=== PATIENT | female | born 1995 | race Caucasian/White ===

== ENCOUNTER 2023-02-21 14:37 | Emergency (ER) | payer OTHER, SELFPAY ==
[2023-02-21 14:38] VITALS: BP 127/47; PULSE 87; RESP 18; TEMP 36.6; O2SAT 95; BMI 17.9
--- NOTE | 2023-02-21 14:53 | EXP.UTC ---
Discharge Plan Disposition Patient Disposition: Home, Self-Care Condition: Good Prescriptions Prescriptions: New methylprednisolone 4 mg Tablets,Dose Pack 4 mg PO DIRECTED Qty: 21 0RF Referrals Follow up/Referrals: Provider,Referral, MD [Primary Care Provider] - See instructions Activity Restrictions/Add. Instructions Additional Instructions/Restrictions: Take the medications as directed. Follow up with your regular doctor. GO TO THE ER FOR ANY WORSENING SYMPTOMS Clinical Impressions Clinical Impression: Pityriasis rosea Instructions Patient Instructions: Nichoyrbrent Payan, DI for Pityriasis Rosea Discharge ED Provider: Rachid Cordoba [facility] HPI General Stated complaint: painful spots on stomach Time Seen by Provider: 02/21/23 14:53 History of Present Illness Provider Complaint: She states that she has had spots come up on her skin on her trunk for the past 3 days. She states that lesions do itch mildly. She denies any pain. Related Data Previous Rx's Medication Instructions Recorded methylprednisolone 4 mg tablets in 4 mg PO DIRECTED #21 tabs 02/21/23 a dose pack Allergies Allergy/AdvReac Type Severity Reaction Status Date / Time No Known Allergies Allergy Verified 02/21/23 14:55 [facility] Disclaimer: The information contained in this section may have been updated after the patient was seen, as this information can be updated by other users. Social History Smoking Status: Never smoker alcohol intake: never current occupational status: student Travel in the last 8 weeks: None ROS Obtained: Yes All systems reviewed & no additional complaints except as documented Constitutional Constitutional: Denies chills and Denies fever(s) Eyes Eyes: Denies eye discharge ENT Ears, Nose, Mouth, and Throat: Denies dizziness, Denies otalgia and Denies sore throat Cardiovascular Cardiovascular: Denies chest pain Respiratory Respiratory: Denies shortness of breath, Denies chest congestion, Denies cough, Denies stridor and Denies wheezing Gastrointestinal Gastrointestingal: Denies nausea or vomiting Musculoskeletal Musculoskeletal: Reports system reviewed and no additional complaints, except as documented and Denies arthralgias Integumentary/Breasts Skin/Breast: Reports as per HPI and Reports rash Neurologic Neurologic: Denies dizziness and Denies paresthesias Allergic/Immunologic Allergic/Immunologic: Denies wheezing Physical Exam General General appearance: alert and in no apparent distress Head Head exam: atraumatic, normocephalic and normal inspection Eye Eye exam: Present normal appearance, PERRL and EOMI ENT ENT exam: Present normal exam, normal oropharynx, mucous membranes moist, TM's normal bilaterally and normal external ear exam Neck Neck exam: Present normal inspection, full ROM and trachea midline; Absent meningismus or lymphadenopathy Chest Chest inspection: Present normal inspection and symmetric chest wall rise; Absent tenderness Respiratory Respiratory exam: Present normal lung sounds bilaterally; Absent respiratory distress Cardiovascular Cardiovascular exam: Present regular rate and normal rhythm; Absent JVD Abdominal Exam Abdominal exam: Present soft and normal bowel sounds; Absent distention, tenderness or guarding Extremities Exam Extremities exam: Present normal inspection, full ROM and normal capillary refill; Absent calf tenderness Back Exam Back exam: Present normal inspection; Absent tenderness Neurological Exam Neurological exam: Present alert and oriented X3 Psychiatric Psychiatric exam: Present normal affect and normal mood Skin Skin exam: Present rash Lymphatic Lymphatic Findings: no adenopathy Medical Decision Making Medical Records Medical records reviewed: No I reviewed the patient's medical records. Cristiano Inquiry Pt receiving controlled substance: No
[2023-02-21 15:18] VITALS: BP 127/47; PULSE 87; RESP 18; TEMP 36.6; O2SAT 95
== END 2023-02-21 15:19 | disposition home or self-care (01) ==
PROVIDERS: Emergency Provider Nurse Practitioner Family
DX: L42 Pityriasis rosea (principal)
CPT/HCPCS: 99204; 99212; G0463

== ENCOUNTER 2023-09-17 08:03 | Emergency (ER) | payer OTHER, SELFPAY ==
[2023-09-17 08:10] VITALS: BP 117/74; PULSE 76; RESP 18; TEMP 36.6; O2SAT 100; BMI 21.2
--- NOTE | 2023-09-17 08:20 | ED_ITS ---
Discharge Plan Disposition Patient Disposition: Home, Self-Care Condition: Good Prescriptions Prescriptions: New methocarbamol 500 mg tablet 500 mg PO TID PRN (Reason: muscle spasm) Qty: 6 0RF ibuprofen 600 mg tablet 600 mg PO Q6HP PRN (Reason: Moderate Pain) Qty: 20 0RF methylprednisolone [Medrol (Porfirio)] 4 mg tablets,dose pack See Rx Instructions .Route .COMPLEX 6 Days Qty: 21 0RF Rx Instructions: taper pack; No Action buprenorphine-naloxone 8-2 mg tablet, sublingual 2 tab SUBLINGUAL DAILY Referrals Follow up/Referrals: Provider,Referral, MD [Primary Care Provider] - See instructions Activity Restrictions/Add. Instructions Additional Instructions/Restrictions: *Ibuprofen cale 6 hours with meal as needed for pain/inflammation *Not additional anti-inflammatory like motrin, aleve, advil with the above amount of ibuprofen. You can still take Tylenol every 4 hours as needed if you need something else for pain *Ice 20 minutes every 2 hours for the first 48 hours after the initial injury followed by moist heat every 20 minutes 3-4 times a day to affected area *Muscle relaxer every 8 hours as needed for muscle spasms but remember, it WILL cause drowsiness You cannot take it and drive, operate machinery or care for small children. *Keep this area active, no movement leads to more stiffness, However take it easy and avoid heavy lifting pushing or pulling *Follow up with you family doctor if no improvement for further treatment ? Discharge ED Provider: Anitha Butts [facility] General Stated complaint: pulled a muscle in the upper back area Mode of Arrival: Ambulatory Source of Information: Patient Limitations: No Limitations Time Seen by Provider: 09/17/23 08:20 Description of Symptoms (Recalled from Triage Doc. by RN): Pt's symptoms are lower back kumar. She stated that it started thursday and was getting better. She then picked her dog up and it got worse. HEENT Symptoms (Recalled from RN notes): No Resp Symptoms (Recalled from RN notes): No Skin Symptoms (Recalled from RN notes): No MS Symptoms (Recalled from RN notes): Yes Functional Status (Recalled from RN notes): n/a History of Present Illness Provider Complaint: Patient states that over the weekend she felt like she pulled a muscle in her lower back States that it was getting better then she bent over to pickle cutter her dog and felt it pull again States this morning it was still bothering her and worse when she moves certain ways Denies falling denies loss of control of bowel or bladder Related Data Home Medications Medication Instructions Recorded Confirmed buprenorphine 8 mg-naloxone 2 mg 2 tab sublingual DAILY addicition 09/17/23 09/17/23 sublingual tablet Previous Rx's Medication Instructions Recorded ibuprofen 600 mg tablet 600 mg PO Q6HP PRN Moderate Pain 09/17/23 #20 tabs methocarbamol 500 mg tablet 500 mg PO TID PRN muscle spasm #6 09/17/23 tabs methylprednisolone 4 mg tablets in See Rx Instructions .Route 09/17/23 a dose pack (Medrol (Porfirio)) .COMPLEX 6 days #21 tabs Allergies Allergy/AdvReac Type Severity Reaction Status Date / Time No Known Allergies Allergy Verified 09/17/23 08:21 Worker's Comp Is this a Worker's Comp case?: No [facility] Disclaimer: The information contained in this section may have been updated after the patient was seen, as this information can be updated by other users. Social History (Updated 02/22/23 @ 17:02 by Rachid Cordoba APRN) Smoking Status: Never smoker alcohol intake: never current occupational status: student Travel in the last 8 weeks: None ROS Obtained: Yes All systems reviewed & no additional complaints except as documented and Yes Systems reviewed as appropriate & no additional complaints except as documented Constitutional Constitutional: Reports system reviewed and no additional complaints, except as documented and Reports as per HPI Cardiovascular Cardiovascular: Reports system reviewed and no additional complaints, except as documented and Reports as per HPI Respiratory Respiratory: Reports system reviewed and no additional complaints, except as documented and Reports as per HPI Gastrointestinal Gastrointestingal: Reports system reviewed and no additional complaints, except as documented and as per HPI Genitourinary Female Genitourinary: Reports system reviewed and no additional complaints, except as documented, Reports as per HPI, Denies dysuria, Denies urinary frequency and Denies urinary urgency Musculoskeletal Musculoskeletal: Reports system reviewed and no additional complaints, except as documented, Reports as per HPI and Reports back pain (muscle spasms, discomfort after feeling something pull in her lower back) Neurologic Neurologic: Reports system reviewed and no additional complaints, except as documented and Reports as per HPI Physical Exam General General appearance: alert and in no apparent distress ENT ENT exam: Present mucous membranes moist Respiratory Respiratory exam: Present normal lung sounds bilaterally; Absent respiratory distress or wheezes Cardiovascular Cardiovascular exam: Present regular rate, normal rhythm and normal heart sounds Abdominal Exam Abdominal exam: Present soft and normal bowel sounds; Absent distention or tenderness Back Exam Back exam: Present tenderness and muscle spasm; Absent sciatic notch tenderness (R) or sciatic notch tenderness (L) Back 1 view image: 1. reports achy like pain that is worse with certain movements and feels like it spasms up Denies loss of control of bowel or bladder and denies falling Neurological Exam Neurological exam: Present alert, oriented X3 and normal gait Medical Decision Making Cristiano Inquiry Pt receiving controlled substance: No Cristiano was queried for this patient: No Vital Signs: 09/17/23 08:10 Temperature 97.8 F Temperature Source Oral Pulse Rate [Right Radial] 76 Respiratory Rate 18 Blood Pressure [Right Arm] 117/74 Blood Pressure Mean [Right Arm] 88 Blood Pressure Source [Right Arm] Automatic Cuff Blood Pressure Position [Right Arm] Sitting 02 Sat by Pulse Oximetry 100 Oxygen Delivery Method Room Air Lab Data Lab results reviewed: Yes I reviewed the patient's lab results. Medical Decision Narrative: Medications discussed with pharmacy
[2023-09-17 08:35] LABS: UTC Pregnancy Test, Urine Negative (Negative)
[2023-09-17 08:39] VITALS: BP 117/74; PULSE 76; RESP 19; TEMP 36.6; O2SAT 100
== END 2023-09-17 08:39 | disposition home or self-care (01) ==
PROVIDERS: Emergency Provider Nurse Practitioner
DX: S29.012A Strain of muscle and tendon of back wall of thorax, initial encounter (principal); S39.012A Strain of muscle, fascia and tendon of lower back, initial encounter; X50.1XXA Overexertion from prolonged static or awkward postures, initial encounter
CPT/HCPCS: 81025; 99212; 99214; G0463

== ENCOUNTER 2024-11-04 08:31 | Outpatient (CLI) | payer OTHER, SELFPAY ==
[2024-11-05 08:45] LABS: Progesterone 17.9 ng/mL (.)
== END 2024-11-04 23:59 | disposition home or self-care (01) ==
LOC: LAB 08:32
PROVIDERS: PCP Physician Assistant; Visit Provider Obstetrics & Gynecology
DX: Z32.01 Encounter for pregnancy test, result positive (principal)
CPT/HCPCS: 36415; 84144; 84702

== ENCOUNTER 2024-12-01 09:12 | Outpatient (CLI) | payer SELFPAY ==
[2024-12-01 09:45] LABS: Basophils % 0.4 % (0.1-2.0); Eosinophils # 0.2 Kmm3 (0.0-0.4); Eosinophils % 1.4 % (0.1-12.0); Hematocrit 34.4 % (37.0-47.0); Hemoglobin 11.4 g/dL (12.2-16.2); Lymphocytes # 2.4 K/mm3 (0.7-4.5); Lymphocytes % 22.5 % (10-50); Mean Corpuscular HGB Conc 33.1 g/dL (31.8-35.4); Mean Corpuscular Hemoglobin 28.2 pg (27.0-31.2); Mean Corpuscular Volume 85.1 fl (81-99); Mean Platelet Volume 10.6 fl (7.4-10.4); Monocytes # 0.7 K/mm3 (0.1-1.0); Monocytes % 6.7 % (1.7-9.3); Neutrophils # 7.2 K/mm3 (1.8-7.8); Neutrophils % 68.5 % (37.0-80.0); Nucleated Red Blood Cells # 0 10^3/uL; Nucleated Red Blood Cells % 0 %; Platelet Count 250 K/mm3 (142-424); Red Blood Count 4.04 M/mm3 (4.20-5.40); Red Cell Distribution Width 12.7 % (11.5-17.5); Red Cell Distribution Width-SD 39.4 fL; White Blood Count 10.5 K/mm3 (4.8-10.8)
[2024-12-01 10:58] LABS: Hepatitis C Ab Qual. W/ RFX NEGATIVE (Negative)
[2024-12-01 11:08] LABS: HIV Combo NEGATIVE (Negative)
[2024-12-02 05:09] LABS: Hepatitis B Surface Antigen Negative (Negative)
[2024-12-02 08:13] LABS: Rubella Antibodies, IgG <0.90 index (Immune >0.99)
[2024-12-02 15:39] LABS: RPR W/RFX Titers Nonreactive (Nonreactive)
== END 2024-12-01 23:59 | disposition home or self-care (01) ==
LOC: LAB 09:13
PROVIDERS: PCP Physician Assistant; Visit Provider Obstetrics & Gynecology
DX: O99.321 Drug use complicating pregnancy, first trimester (principal); F11.10 Opioid abuse, uncomplicated
CPT/HCPCS: 36415; 85025; 86592; 86762; 86803; 86850; 87340; 87389

== ENCOUNTER 2025-01-19 10:01 | Emergency (ER) | payer OTHER, SELFPAY ==
[2025-01-19 10:08] VITALS: BP 131/72; PULSE 86; RESP 15; TEMP 36.8; O2SAT 98; BMI 20.5
[2025-01-19] MEDS: LIDOCAINE 2% 20ML VIAL 10 ML IJ (10:32)
--- OUTSIDE RECORDS SUMMARY | 2025-01-19 10:34 | XMS_ITS | Data Portability ---
Author Organization [facility] Kory Baez [employer], [address](CLOSED) Address [address] [place] [address] Assessment No assessment recorded. Plan of Treatment Reminders Order Date Submit Date Provider Last Modified By Organization Details Last Modified Time Details Appointments None recorded. Lab test, urine 2020 021 [email or web address] In-House Results, For Internal Use Only, Do Not Delete/merge, [id number] 12:59:11 Referral None recorded. Procedures None recorded. Surgeries None recorded. Imaging US, transvagina l 2020 021 [email or web address] Not available 16:23:08 US, obstetric, transvagina l 2020 021 [email or web address] Not available 16:48:38 Medication Orders Loestrin Fe 08/29 (28-Day) 1 mg-20 mcg (21)/75 mg (7) tablet 2020 021 [email or web address] [facility], [address], [place], [address], 08:07:32 Percocet 7.5 mg-325 mg tablet 2020 021 [email or web address] [facility], [address], [place], [address], 1 08:07:39 ondansetron 8 mg disintegrat ing tablet 2020 021 [facility], [address] [place], [address], 1 09:38:56 Lexapro 10 mg tablet 2020 021 [facility], [address] [place], [address], 09:38:56 trazodone 50 mg tablet 2020 021 [facility], [address] [place], [address], 2 09:11:56 Xanax 0.5 mg tablet 2020 021 [facility], [address] [place], [address], 12:59:14 Patient Targets Encounter Date Encounter Id Patient Goals Patient Target Last Modified By Organization Details Last Modified Time 02/14/2021 [id number] RA operative laparoscopy, excision of pelvic mass/cyst, chromotubation gramie Not available 02/14/2021 09:38:19 Patient Instructions Encounter Date Encounter Id Patient Instructions Last Modified By Organization Details Last Modified Time 11/15/2020 [id number] She is status po st methotrexate for ectopic . She has done well after the injection. Her day 4 and day 7 quantitative hCGs were evaluated and she has greater than a 15% drop. Her pain is significantly less and she has no major bleeding issues. She has struggled with severe anxiety however. I gave her a prescription for xanax to use as needed for her severe panic attacks. I discussed the addictive potential of benzodiazepines and instructed her to only use on rare occasion where conservative measures such as meditation and coping mechanisms aren't helping. She states understanding and agrees not to get any benzodiazepine prescriptions from other providers within 90 days. I have also explained that driving or operating heavy machinery is contraindicated with this type of medication. she is to follow up with me in a week or so for a follow-up ultrasound. At this point we need to follow her urine tests weekly until negative which she can do at home. Contraception discussed today as well. mago Not available 11/19/2020 10:14:50 11/28/2020 [id number] Her HCG is negat james today. She still has this right sided relatively solid adnexal mass that I suspect is just a large blood clot. I will bring her back in a couple of months for re-evaluation of this. If still present consider laparoscopy. She is to notify me of any pain or bleeding problems. She is to start OCPs today. Precautions and warnings given. I have given her strict ovarian torsion precautions. Complexity: Moderate, she has 1 or more chronic problems with exacerbation or progression. Risk: Moderate, as we discussed potential surgery for the problem. mago Not available 11/28/2020 19:01:20 01/23/2021 [id number] f/u pre op jose eduardo Not available 01/08 16:21:39 Today we took ti me to discuss the above diagnosis. We discussed her treatment options. We discussed the risk, benefits, possible complications, and the short and tank officer consequences of treatment. She was sent to the veterinary surgery technician for consultation and coordination of care. jose eduardo Not available 01/23/2021 16:21:45 02/14/2021 [id number] acute pain after surgery: care instructions jose eduardo Not available 02/14/2021 09:38:53 No Aspirin betwe en now and surgery, Nothing to eat or drink at least 8 hour prior to surgery. Call between now and surgery should you experience any new illness. jose eduardo Not available 02/14/2021 09:37:52 Today we discuss ed the above procedure(s). She arrived at the decision to proceed through shared decision making after discussion of the risk, benefits, potential complications and consequences of the above procedure(s). We covered the potential and relative incidence for blood loss, blood clots, infection, damage to surrounding organs, and much less likely residential disability or . After detailed discussion and answering all questions to her satisfaction with regard to the above procedure(s) she wishes to proceed. Written consents were reviewed, and signed. Her pre and post operative instructions were reviewd in detail today. jose eduardo Not available 02/14/2021 09:37:58 03/01/2021 [id number] You have complet ed your post operative observation period. You should resume your normal activities. If you feel pain or have bleeding, you should restrict your activity and call the office for an appointment. If you have any problems do not hesitate to call. f/u 3 months for f/u and pap jose eduardo Not available 03/01/2021 11:50:13 Reason for Referral None Reported. Results Created Date Observation Date Name Description Value Unit Range Abnormal Flag Note LastModifiedBy Organization Detail LastModifiedTime 11/16/19 21 11/15/2020 pregn callie test, urine Unknown Analyte positi ve Not Available In-House Results For Internal Use Only, Do Not Delete/merge, [id number] 11/15/2020 12:48:57 02/22/20 21 02/21/2021 PREGN CALLIE URINE - POCT urine - poct NEGATI VE negati ve Test Perfo med at: [address] T Not Available [facility] [address] [place] [address], [address], 02/21/2021 13:01:17 02/22/20 21 02/21/2021 PREGN CALLIE URINE - POCT performing lab: POC - [facility] [address] [facility] [address] Not Available [facility] [address] [place], [address], 02/21/2021 13:01:17 02/22/20 21 02/21/2021 CBC W/AUT O DIFFE RENTI AL WBC count bld 9.2 K/mm3 4.8-10 .8 Not Available [facility] [address] [place], [address], 02/21/2021 14:20:18 02/22/20 21 02/21/2021 CBC W/AUT O DIFFE RENTI AL red blood cell 4.11 mil/m m 3.80-5 .50 Not Available [facility] [address] [place], [address], 02/21/2021 14:20:18 02/22/20 21 02/21/2021 CBC W/AUT O DIFFE RENTI AL hemoglobin 10.9 gm/dL 11.7-1 5.5 low Not Available [facility] [address] [place], [address], 02/21/2021 14:20:18 02/22/20 21 02/21/2021 CBC W/AUT O DIFFE RENTI AL hematocrit 33.4 % 33.0-4 5.0 Not Available [facility] [address] [place], [address], 02/21/2021 14:20:18 02/22/20 21 02/21/2021 CBC W/AUT O DIFFE RENTI AL mean cell volume 81 fL 78-100 Not Available [facility] [address] [place], [address], 02/21/2021 14:20:18 02/22/20 21 02/21/2021 CBC W/AUT O DIFFE RENTI AL mean cell HGB 26.5 pg 28.0-3 4.0 low Not Available [facility] [address] [place], [address], 02/21/2021 14:20:18 02/22/20 21 02/21/2021 CBC W/AUT O DIFFE RENTI AL mean cell HGB concentratio n 32.6 g/dL 32.0-3 6.0 Not Available [facility] [address] [place], [address], 02/21/2021 14:20:18 02/22/20 21 02/21/2021 CBC W/AUT O DIFFE RENTI AL red cell distribution width 14.6 % 11.5-1 4.5 high Not Available [facility] [address] [place], [address], 02/21/2021 14:20:18 02/22/20 21 02/21/2021 CBC W/AUT O DIFFE RENTI AL platelet count 215 K/mm3 130-40 0 Not Available [place] [id number] [place], [address], 02/21/2021 14:20:18 02/22/20 21 02/21/2021 CBC W/AUT O DIFFE RENTI AL mean platelet volume 9.7 um3 6.0-9. 5 high Not Available [facility] [address] [place], [address], 02/21/2021 14:20:18 02/22/20 21 02/21/2021 CBC W/AUT O DIFFE RENTI AL neutrophil % 63.3 % 45.0-7 5.0 Not Available [place] [address] [place], [address], 02/21/2021 14:20:18 02/22/20 21 02/21/2021 CBC W/AUT O DIFFE RENTI AL lymphocyte % 29.6 % 20-40 Not Available [place] [address] [place], [address], 02/21/2021 14:20:18 02/22/20 21 02/21/2021 CBC W/AUT O DIFFE RENTI AL monocyte % 6.0 % 0-10.5 Not Available [facility] [address] [place], [address], 02/21/2021 14:20:18 02/22/20 21 02/21/2021 CBC W/AUT O DIFFE RENTI AL eosinophil % 0.5 % 0-7 Not Available [place] [address] [place], [address], 02/21/2021 14:20:18 02/22/20 21 02/21/2021 CBC W/AUT O DIFFE RENTI AL basophil % 0.6 % 0-2.0 Not Available [place] [id number] [place], [address], 02/21/2021 14:20:18 02/22/20 21 02/21/2021 CBC W/AUT O DIFFE RENTI AL performing lab: GC - [facility] [address] [facility] [address] Not Available [facility] [address], [place], [address], 02/21/2021 14:20:18 02/26/20 21 02/25/2021 SURGI LAXMI results RUN DATE: 02/25 [facility] PAGE 1 RUN TIME: [address] [place] [address] LIS Speci men Inqui ry ----- ----- ----- ----- ----- ----- ----- ----- ----- ----- ----- ----- ----- ----- ----- ----- ----- ----- -- Name: SANDIE ONTIVEROS Age/S ex: 26/ Locat ion: [place] [id number] Unit# : [id number] Statu s: [facility] [facility] [place] Bed: Re02/21 Disch : Att Dr: Axel Louis DO ----- ----- ----- ----- ----- ----- ----- ----- ----- ----- ----- ----- ----- ----- ----- ----- ----- ----- -- Speci men: SU21: CBQ:3 797 Recei joshua: 02/22-0 820 Statu s: NORA Req#: [id number] Colle cted: 02/21- Sp Type: SURGI LAXMI Subm Doc: Axel Louis DO SPECI MEN: A. FALLO PIAN TUBE, NOS - ENDOM ETRIO MA RIGHT FALLO PIAN TUBE FINAL DIAGN OSIS RIGHT FALLO PIAN TUBE, ROBOT IC- SISTE D OPERA TIVE LAPAR OSCOP Y WITH RESEC TION OF DISTA L PORTI ON OF RIGHT FALLO PIAN TUBE WITH ENDOM CHEO RAMESH AND LYSIS OF ADHES IONS: - INFLA MED ENDOM ETRIO MA WITH HEMOS IDERI N DEPOS ITION AND THROM BUS INVOL VING THE DISTA L FALLO PIAN TUBE SEGME NT. - NEGAT JAMES FOR GRANU MAYO AND TUMOR . Dicta christina by: DEVAN GUIDO MD GROSS DESCR IPTIO N Recei joshua in forma luna, label ed with the patie nt's name, date of , and endo metri kaci right fallo pian tube . The speci men consi sts of a 5 x 4 x 2 cm friab le light alfaro to brown tissu e. The speci men is seria lly secti oned and repre senta tive secti ons are submi tted in casse ttes label ed A1-A4 , one piece per casse tte. SALINA/mm /[id number] Techn ical compo nent perfo rmed at [facility] [address] [place] [address] CLINI LAXMI INFOR MATIO N RIGHT LOW QUADR ANT ABDOM INAL SWELL ING/M ASS PATH PROCE DURES :8830 4 RUN DATE: 02/25 [facility] PAGE 2 RUN TIME: [address] [place] [address] LIS Speci men Inqui ry MCCTK T,SANDIE VIOLA SU21: CBQ:3 797 COPIE S TO: NO PRIMA RY OR FAMIL Y PHYSI Axel Garcia DO [address] [place] [address] PROCE DURES : [id number] (02/07) Thai johnson by: Rebekah MARTINEZ MD Date: 02/25 ----- ----- ----- ----- ----- ----- ----- ----- ----- ----- ----- ----- ----- ----- ----- ----- ----- ----- -- END OF REPOR T Not Available [facility] [address], [place], [address], 02/25/2021 20:04:42 11/29/19 21 US, obste tric, trans vagin al No observ ation record ed. [email or web address] Not Available 2020 19:00:51 11/29/19 21 11/28/2020 ultra sound image s RAD [email or web address] [facility] [address], [place], [address], 11/28/2020 19:00:57 01/24/20 21 US, trans vagin al No observ ation record ed. jose eduardo Not Available 2020 09:35:12 01/24/20 21 01/23/2021 ultra sound image s RAD jose eduardo [facility] [address], [place], [address], 01/25/2021 09:35:00 Result Notes None recorded. Procedures Surgical History Date Name Laterality Status Provider Name and Address Organization Details Recorded Time 03/01/20 Suture/Staple Removal Procedure Note ([facility]) completed Juanjo Major [facility] [employer] 03/01/2021 11:04:12 02/22/20 21 LAPAROSCOPY, SURGICAL WITH FULGURATION/EXCIS ION OF LESIONS OF THE OVARY/PELVIC VISCERA/PERITONEA L SURFACE (SURG) completed Ruby Armstrong [facility] [employer] 02/26/2021 16:31:31 08/10/19 18 Date of Last Pap Smear completed Juanjo Major [facility] 02/14/2021 09:24:40 Hand tendon reconstruction completed Ashley Sims [facility] 11/15/2020 12:41:29 Imaging Results None recorded. Procedure Notes None recorded. Medical Equipment None Reported. Allergies No known drug allergies Medications Name Sig Start Date Stop Date Status Note LastModified by Organization Details LastModified Time trazodone 50 mg tablet TAKE 1 TABLET AT BEDTIME FOR 30 DAYS. active Not Available Not Available No t Available prednisone 20 mg tablet 02/14 completed Not Available Not Available Not Available ondansetron 8 mg disintegrat ing tablet DISSOLVE 1 TABLET IN MOUTH EVERY 8 HOURS NEEDED active Not Available Not Available No t Available alprazolam 0.5 mg tablet TAKE 1/2 TABLET EVERY 8 HOURS NEEDED FOR MODERATE TO SEVERE PANIC ATTACK. active Not Available Not Available No t Available hydrocodone 7.5 mg-acetamin ophen 325 mg tablet 02/14 completed Not Available Not Available Not Available metronidazo le 0.75 % topical cream APPLY TO AFFECTED AREA EVERY DAY 11/15 completed Not Available Not Available Not Available oxycodone-a cetaminophe n 7.5 mg-325 mg tablet TAKE 1 TABLET BY MOUTH EVERY 6 HOURS NEEDED FOR PAIN FOR 5 DAYS 07/26 completed Not Available Not Available Not Available escitalopra m 10 mg tablet TAKE 1 TABLET EVERY DAY BY ORAL ROUTE DIRECTED FOR 30 DAYS. active Not Available Not Available No t Available 08/29 (28) 1 mg-20 mcg (21)/75 mg (7) tablet Take 1 tablet every day by oral route as directed for 84 days. 07/26 completed Not Available Not Available Not Available Xanax 11/28 completed Not Available Not Available Not Available 28 mg iron-800 mcg tablet TAKE 1 TABLET BY MOUTH DAILY 11/15 completed Not Available Not Available Not Available Vitals Date Recorded Body weight Body mass index (BMI) Body height Systolic blood pressure Diastolic blood pressure Provider Name and Address Organization Details Last Updated DateTime 11/15/2020 01301.52 g 23.4 kg/m2 180.34 cm 106 mm[Hg] 64 mm[Hg] Ashley Sims [facility] 12:32:02 Date Recorded Body height Body mass index (BMI) Body weight Systolic blood pressure Diastolic blood pressure Provider Name and Address Organization Details Last Updated DateTime 11/28/2020 180.34 cm 23 kg/m2 52988.74 g 110 mm[Hg] 80 mm[Hg] Mya Ordaz ([facility]) [facility] 16:27:34 Date Recorded Body height Body mass index (BMI) Body weight Systolic blood pressure Diastolic blood pressure Provider Name and Address Organization Details Last Updated DateTime 01/23/2021 180.34 cm 22.2 kg/m2 06540.19 g 124 mm[Hg] 72 mm[Hg] Juanjo Major [facility] 16:04:28 Date Recorded Body height Body mass index (BMI) Body weight Systolic blood pressure Diastolic blood pressure Provider Name and Address Organization Details Last Updated DateTime 02/14/2021 180.34 cm 21.6 kg/m2 18633.82 g 98 mm[Hg] 52 mm[Hg] [facility] 09:30:23 Date Recorded Body height Body mass index (BMI) Body weight Systolic blood pressure Diastolic blood pressure Provider Name and Address Organization Details Last Updated DateTime 03/01/2021 180.34 cm 20.9 kg/m2 48262.86 g 112 mm[Hg] 70 mm[Hg] [facility] 11:04:08 Social History Question Answer Notes LastModified by [employer] Details LastModified Time Tobacco Smoking Status Current Every Day Smoker vape only Ashley Freitasper [facility] 11/15/2020 12:40:13 Is Blood Transfusion Acceptable In An Emergency? Yes Information not available 11/15/2020 What Is Your Level Of Caffeine Consumption? Moderate Information not available 11/15/2020 What Type Of Diet Are You Following? REGULAR Information not available 11/15/2020 Education 12 Information no t available 11/15/2020 Illicit Drugs? No Informatio n not available 11/15/2020 History Of Domestic Violence No Information not available 11/15/2020 Marital Status Single Informatio n not available 11/15/2020 Seat Belts Used Routinely Yes Information not available 11/15/2020 How Many Years Have You Smoked Tobacco? 10 Information not available 11/15/2020 Sex: Unknown Functional Status Question Answer Note LastModified by [employer] Details LastModified Time What is your level of alcohol consumption? Occasional Information not available 11/15/2020 Do you or have you ever used e-cigarettes or vape? [email or web address] Information not available 01/23/2021 What is your exercise level? Heavy Information not available 11/15/2020 Mental Status None recorded. Family History Relationship Description Onset Age of this Age Resolved Age Notes LastModified by Organization Details LastModified Time Mother Hypertensive disorder [email or web address] Not available 2020 12:10:04 Mother Myocardial infarction [email or web address] Not available 01/23 14:45:02 Mother Heart disease ecavelli Not available 2020 12:36:54 Father Malignant neoplasm of skin [email or web address] Not available 2020 14:45:03 Father Infectious disease of lung dece ed [facility] Not available 01/23/2021 14:45:03 Maternal Grandmother Myocardial infarction dece ed [facility] Not available 01/23/2021 14:45:03 Maternal Grandfather Malignant neoplasm of lung dece ed ecavelli Not available 11/15/2020 12:38:17 Paternal Grandfather Sepsis deceas ed [email or web address] Not available 01/23/2021 14:45:03 Paternal Grandmother Hypertensive disorder ecavelli Not available 2020 12:38:56 Medical History Condition Response Neurology- Memory Loss/Dementia N Neurology- Stroke/TIA N Dermatology-Acne N Cancer- Genetic Screening N Endocrinology- Vitamin Deficiency N Endocrinology-Other N Hematology-Anemia N Cardiology- Atrial fib/atrial flutter N Nephrology-Renal Disease N Neurology- Seizures/Epilepsy N Cardiology- Heart Attack N Ortho-Fractures N Neurology- Neuropathy N Reviewed with no changes N Endocrinology- Prolactinoma N Urology- Recurrent Urinary Tract Infecti ons N Pulmonary- Seasonal Allergies/Allergic R hinitis N Psych- PMS/PMDD N Pulmonary-Other N Pulmonary- Lung Disease N Endocrinology- Glucose Intolerance/Insul in Resistance N Psych- Anxiety Disorder Y GI- Reflux/Ulcers N Rheumatology-Arthritis N ID-Chicken Pox/Shingles Y Cancer- Skin N GI- Irritable Bowel Syndrome N Cardiology- Heart Disease N ID-HIV N GI- Colon Polyps N Endocrinology- Osteopenia N Endocrinology- Elevated Prolactin N ID-Other N Psych- Eating Disorder N Ortho- Arthritis N Urology- Urinary Incontinence N Hematology-Blood Transfusion N Pulmonary- Asthma N Urology- Hematuria (Blood in Urine) N Pulmonary- Sleep Apnea N Neurology- Dementia N Urology- Interstitial Cystitis N Endocrinology- Hypothyroidism N Eyes-other N Neurology- Multiple Sclerosis N GI- Hemorrhoids N Neurology-Other N ID- Rheumatic Fever N Hematology-Blood Clotting Disorder/Facto r V Leiden N Endocrinology- Osteoporosis N Psych- Depression N Do you have any current or past medical conditions? N Hematology-Other N Dermatology-Other N ID- Tuberculosis/Positive PPD N Ortho-Chronic Back Pain N Dermatology-Eczema/Psoriasis N Rheumatology-Autoimmune Disease N Cancer- Ovary N Cardiology- High Cholesterol N Cardiology- Heart Arrhythmia N Urology- Kidney or Bladder Problems N Psych- Mental Disorder N Hematology-DVT/Pulmonary Embolism N Psych-other N Endocrinology- Hyperthyroidism N Endocrinology- Thyroid Problems N Ortho-other N Other infectious diseases N Cancer- Breast N Psych- ADD N ID- Herpes N GI- Liver Disease/Hepatitis N Weight Management/Obesity N Cancer- Colon N ENT- Hearing Loss N Cancer- Vulvar N Cancer- Vaginal N GI-Other N Neurology- Headaches/Migraines N Hematology-Bleeding Disorder N Endocrinology- Diabetes N Cancer- Cervical N No diseases or conditions N Pulmonary- COPD/Emphysema N GI- Vitamin Deficiency N GI- Crohn's/Ulcerative Colitis N Endocrinology- History of Gestational Di abetes N Psych- Bipolar Disease N ENT- Seasonal Allergies/Allergic Rhiniti s N Cardiology- High Blood Pressure N Cancer- Lung N Cancer- Endometrial/Uterine N Eyes- Glaucoma N Urology- Kidney Disease N Eyes- Vision Loss/Macular Degeneration N ENT-Other N Rheumatology-Other N Cardiac- Aneurysm N Urology- Kidney Infection N Cardiology- Heart Murmur/Mitral Valve Pr olapse N Urology- Stones N ID-MRSA N Cancer-Other N GI- Gallbladder Disease N Gynecological History Statement/Question Response Date of Last Mammogram Date of LMP 02/03/2021 HPV Test Negative Age at Menopause N/A Post Menopausal Hormone Use Never Sexual orientation Heterosexual History of Endometriosis N Date of Last Colonoscopy History of Sexually Transmitted Infectio n Y History of Infertility N Date of last bone density HPV Vaccine Not Completed History of Recurrent Ovarian Cyst N History of PCOS N History of Fibroids N History of Vulvar Dysplasia N Age at Menarche 15 History of Cervical Dysplasia N Sexually active Y Current Control Method: None History of abnormal PAP N Date of Last Pap Smear 08/10/2017 Obstetrics History GPAL:G 1 P 0 0 1 0 Type Value Multiple Births 0 Full Term 0 Induced 0 Spontaneous 0 Premature 0 Living 0 Ectopics 1 Total 1 Past Encounters Encounter ID Performer Location Encounter Start Date Encounter Closed Date Diagnosis/Indication Diagnosis SNOMED-CT Code Diagnosis ICD10 Code Diagnosis Note [id number] Desmond Sousa [place] [address] [place] [address] 1 11/15/2020 11:26:42 11/15/2020 12:58:25 Ectopic 37396220 O00.90 Moderate anxiety 5103580 6 F41.1 with occasional panic attacks [id number] Desmond Sousa [place] [address] [place] [address] 1 11/28/2020 14:58:39 11/28/2020 16:48:38 Ectopic 07181508 O00.90 [id number] Kole Louis [place] [address] [place] [address] 1 01/23/2021 14:44:45 01/23/2021 16:23:07 Intra-abdominal and pelvic swelling, mass and lump 456425439 R19.03 Persistent insomnia 1919 17047 G47.09 [id number] Kole Louis [place] [address] [place] [address] 1 02/14/2021 09:13:27 02/14/2021 09:36:56 Intra-abdominal and pelvic swelling, mass and lump 257521928 R19.03 Mixed anxi ety and depressive disorder 038042011 F41.8 Postoperative pain 27371 9007 G89.18 [id number] Kole Louis [place] [address] [place] [address] 1 03/01/2021 10:25:43 03/01/2021 11:50:47 Procedure on genitourinary system 410275124 Z48.816 Uses oral contraception 9317103 Z30.41 Endometrio sis of pelvis 22732027 N80.3 Health Concerns Section Related Observation LastModified by Organization Detai ls LastModified Time None Recorded Concern Status LastModified by Organization Details LastModified Time None Recorded Advance Directives Directive None Recorded Payers Insurance Date Sequence Insurance Name Policy Number Policy Webster Covered Member ID Webster Member ID Guarantor Name 07/23/2021 1 [facility] (MEDICAID REPLACEMENT - HMO) Maida Pandya [id number] Maida Gordon Notes Date Note Type Note Provider Name and Address Organization Details Recorded Time 11/15/2020 text/html Abnormal Pregnan cy ([facility])Reported bypatient.Patient presents for:follow-up problem *Location:fallopian tube * Duration:2 weeks * Timing:onset: sudden * Severity:moderate * Context:LMP:09/01/19 21; smoking yes Diagnostic Testing:Blood Type: positive *Associated Signs & Symptoms:vaginal bleeding Previous Treatments:methotrex ate Patient presents for follow from ER for Ectopic. Desmond Sousa DO [address] [facility], [address], [place], [place], [address] [place] [address], [facility] [employer] 11/19/2020 10:15:49 11/28/2020 text/html Patient presents today for follow-up with [facility].She has no pain or bleeding symptoms. Desmond Sousa DO [address] [facility], [address], [place], [place], [address] [place] [address], [facility] [employer] 11/28/2020 19:01:36 01/23/2021 text/html Patient presents to the office today for f/u on ectopic . She c/o her moods being up and down. She states she is still having severe anxiety with depression. She also c/o pelvic pain. Kole Louis DO [address], [address], [place], [place], [address] [place] [address], [facility] [employer] 01/23/2021 16:23:07 02/14/2021 text/html Pre-Op ([facility])Reported bypatient.Procedure Date:02/21/2021 Informed Consent Obtained and Alternative Treatments Discussed for:RA Excision of pelvic mass; Chromotubation Risks Discussed:failure of treatment; infection; further surgery; injury to any surrounding organ; chronic pain; deep vein thrombosis / pulmonary embolism Preoperative Instructions:discont inuation of medications; preoperative medications; preoperative hospital appointment / nursing assessment; arrival time at hospital; NPO status; preoperative diet & bowel prep Postoperative Instructions:no heavy lifting; nothing per vagina; no driving while taking narcotic pain medication; postoperative pain medication instructions; ER precautions Blood Transfusion Acceptable:yes Healthcare Power of Senior Business Objects Developer:noNotes:Per sistant anxiety. Patient presents to the office today for pre-op visit. Kole Louis DO [address] [facility], [address], [place], [address], [facility] Rep [facility] 02/21/2021 06:57:35 03/01/2021 text/html Post-Op ([facility])Reported bypatient.Procedure Date:02/21/2021 Surgical Procedure:Robotic assisted operative laparoscopy with resection of distal portion of the right tube with endometrioma, lysis of adhesions extensive taking greater than 50% of the extended operating time. Chromotubation did demonstrate patency of the left tube. Ablation of endometriosis of the medial aspect of the broad ligament on the left and right and along the uterosacral insertion at the uterus. Pathology:surgical findings and pathology reviewed; future implications discussed Postoperative Symptoms:none; pain well-controlled; tolerating PO; ambulating; voiding without difficulty; return to GI function Postoperative Complications:none Patient presents to the office today for 2 week post-op visit with suture removal. Kole Louis DO [address] [facility], [address], [place], [address], [facility] [employer] 03/01/2021 11:50:27 OBGyn Episode No OBEpisode recorded.
[2025-01-19] MEDS: AMOXICILLIN/CLAVULANATE POTASSIUM 875/125MG TABLET 1 EACH PO (10:42)
--- NOTE | 2025-01-19 11:01 | ED_ITS ---
Discharge Plan Disposition Patient Disposition: Home, Self-Care Prescriptions Prescriptions: New amoxicillin-pot clavulanate 875-125 mg tablet 1 tab PO BID 7 Days Qty: 14 0RF No Action ergocalciferol (vitamin D2) 1,250 mcg (50,000 unit) capsule PO Patient Comments: TAKE 1 CAPSULE BY MOUTH ONCE WEEKLY FOR VITAMIN D DEFICIENCY ondansetron 4 mg tablet,disintegrating 4 mg PO Q8H PRN (Reason: nausea and vomiting) Qty: 30 1RF cholecalciferol (vitamin D3) 50 mcg (2,000 unit) tablet PO Patient Comments: TAKE 1 TABLET BY MOUTH EVERY DAY buprenorphine-naloxone [Suboxone] 8-2 mg film 2 film buccal DAILY Qty: 60 0RF Rx Instructions: place 1 film on inside of (each) cheek Vitamin Plus Low Iron 27 mg iron- 1 mg tablet PO sertraline 25 mg tablet 25 mg PO DAILY Qty: 30 1RF Referrals Follow up/Referrals: Sarah Ramos PA [Primary Care Provider, Medical] - See instructions Activity Restrictions/Add. Instructions Additional Instructions/Restrictions: Call your family doctor to establish care for this visit to the emergency department and schedule follow-up within 48 hours to ensure improvement. If you have any worsening of your condition or any other concerning signs or symptoms, return to the emergency department or your primary care doctor for further evaluation. Antibiotic twice daily for 7 days. Call your dentist in order to set up care for extraction. Clinical Impressions Clinical Impression: Abscess, dental Print Language Print Language: Yi Discharge ED Provider: Alirio Espinoza General Adult HPI General Chief complaint: Dental/Oral Stated complaint: swelling in face, 17 wks preg Time Seen by Provider: 01/19/25 10:04 Mode of Arrival: Ambulatory Source of Information: Patient Description of Symptoms (Recalled from ER Triage Doc. by RN): Patient states she was eating something Thursday01/17/25 and thinks she broke her tooth in the left lower part of her mouth and is now having pain and swelling in mouth. Unable to get in to see dentist and OB (Dr. Mae) is out today. Patient is 17 weeks (G2, P0, A1, L0) and no issues so far with . Took tylenol about 0500 this morning. History of Present Illness HPI narrative: Please note that above description of symptoms, in this electronic medical record under categorization of recalled from ER triage doctor by RN are reflective of an initial nursing assessment, however, is not reflective of my full history and physical exam that was personally taken and clarified. Consequentially, this preceding description of symptoms, which may include the patient's categorized chief complaint in the EMR, do not reflect my personal clinical impression, and the ultimate description of history of present illness and patient stated complaints should be deferred to this section of the note. Unless stated otherwise or congruent with this section of the note, additional signs, symptoms, or incongruence should be interpreted as inaccurate with my clinical impression. Related Data Home Medications ?Medication ?Instructions ?Recorded ?Confirmed vitamin with calcium tab PO 11/22/24 01/17/25 no.72-iron 27 mg-folic acid 1 mg tablet ( Vitamins Plus Low Iron) cholecalciferol (vitamin D3) 50 PO 12/09/24 01/17/25 mcg (2,000 unit) tablet ergocalciferol (vitamin D2) 1,250 PO 12/20/24 01/17/25 mcg (50,000 unit) capsule Previous Rx's ?Medication ?Instructions ?Recorded buprenorphine 8 mg-naloxone 2 mg 2 film buccal DAILY # 60 ea 04/15/24 sublingual film (Suboxone) ondansetron 4 mg disintegrating 4 mg PO Q8H PRN nausea and 12/20/24 tablet vomiting #30 tabs sertraline 25 mg tablet 25 mg PO DAILY #30 tabs 12/09 11/01 amoxicillin 875 mg-potassium 1 tab PO BID 7 days #14 t abs 01/19/25 clavulanate 125 mg tablet Allergies Allergy/AdvReac Type Severity Reaction Status Date / Time No Known Allergies Allergy Verified 01/19/25 10:18 [facility] Disclaimer: The information contained in this section may have been updated after the patient was seen, as this information can be updated by other users. 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 Pityriasis rosea Surgical History Hx of unilateral salpingectomy No pertinent past surgical history Family History Family/Other No significant family history Social History Smoking Status: Current every day smoker alcohol intake: never current occupational status: student Travel in the last 8 weeks?: None Have you lived/traveled outside US in past 30 days?: No Contact w/someone who lives/traveled outside US past 30 days?: No Exposure to someone with infectious disease in past 14 days?: No Do you have a fever (greater than 100.4 F or 38 C)?: No Have you tested positive for COVID-19?: No Exposed to someone with COVID-19 in past 14 days?: No Do you have a sore throat?: No Do you have a cough?: No Do you have any weakness?: No Do you have any diarrhea?: No Are you experiencing any unusual bleeding?: No Do you have any muscle aches/pain?: No Do you have any abdominal pain?: No Are you experiencing loss of taste or smell?: No Other Medical History Have you received the Pneumonia Vaccine: No ROS Obtained: Yes All systems reviewed & no additional complaints except as do cumented Physical Exam General General appearance: alert Head Head exam: atraumatic and normocephalic Eye Eye exam: Present normal appearance, PERRL and EOMI ENT ENT exam: Present other (Swelling to the left side of the mandible no tenderness along the mandible itself. No lymphadenopathy. No range of motion of neck difficulties. Intraorally, patient has numerous dental caries and broken teeth, poor dentition. Periapical abscess.) Neck Neck exam: Present normal inspection, full ROM and trachea midline Respiratory Respiratory exam: Absent respiratory distress, wheezes, stridor, accessory muscle use or prolonged expiratory phase Cardiovascular Cardiovascular exam: Present other (Pulses equal symmetric in upper and lower extremities) Abdominal Exam Abdominal exam: Present soft; Absent distention, tenderness or pulsatile mass Extremities Exam Extremities exam: Absent edema Neurological Exam Neurological exam: Present alert, oriented X3 and CN II-XII intact; Absent motor sensory deficit Skin Skin exam: Present warm and dry; Absent diaphoresis or erythema Medical Decision Making Medical Records Medical records reviewed: Yes I reviewed the patient's medical records. Screening: Per USPSTF and CDC recommendations, given the prevalence of disease in our region, it is our hospital?s policy to screen for HIV and viral Hepatitis for all patients aged 18 and over and those with ongoing risk factors. Cristiano Inquiry Pt receiving controlled substance: No Cristiano was queried for this patient: No Vital Signs: 01/19/25 10:08 Temperature 98.2 F Temperature Source Oral Pulse Rate [Right Radial] 86 Respiratory Rate 15 Blood Pressure [Right Arm] 131/72 Blood Pressure Mean [Right Arm] 91 Blood Pressure Source [Right Arm] Automatic Cuff Blood Pressure Position [Right Arm] Sitting 02 Sat by Pulse Oximetry 98 Oxygen Delivery Method Room Air Orders (Tests/Meds): ED MEDICATIONS Discontinued Medications Generic Name Dose Route Start Last Admin Trade Name Freq PRN Reason Stop Dose Admin Amoxicillin/Clavulanate Potassium 1 each 01/19/25 10:40 01/19/25 10:42 Amoxicillin/Clavulanate Potassium 875/125mg Tablet PO 01/19/25 10:41 1 each ONCE ONE Administration Lidocaine HCl 10 ml 01/19/25 10:25 01/19/25 10:32 Lidocaine 2% 20ml Vial IJ 01/19/25 10:26 10 ml ONCE ONE Administration Medical Decision Narrative: 29-year-old female presenting with facial swelling. She is currently . States that a couple days prior to this she had pain in the left side of her face, it went away, yesterday, 01/18, she was chewing on a hard candy, bit down on that side, had significant pain that brought me to my knees, but did not have any obvious broken teeth at the time. States that she has poor dentition, needs to have an extraction, but is new to the area and does not have appropriate follow-up. Today, noticed the swelling is getting worse on the left side of her face, so came in for further evaluation. No difficulty or pain with swallowing, no difficulty or pain with range of motion of neck, no fevers or chills, abdominal, pelvic, or vaginal complaints, or any other concerns. History obtained with patient. On arrival, obvious swelling to the left side of the face. Swelling to the left side of the mandible no tenderness along the mandible itself. No lymphadenopathy. No range of motion of neck difficulties. Intraorally, patient has numerous dental caries and broken teeth, poor dentition. Periapical abscess. No evidence of tonsillitis, exudate, pharyngeal erythema, uvular deviation, palatal swelling, trismus, external neck swelling, submental induration, angioedema, or other abnormal linwood pharyngeal findings. Labs are considered, but not deemed necessary because patient systemically and clinically well. Imaging of the face was also considered, but given clinical periapical abscess, poor dentition, and , radiation burden deemed unnecessary and CT scan of the face was opted out of. Patient was numbed with lidocaine without epinephrine approximately 2 cc in the lateral aspect of the gum. Lanced with 11 blade. Approximately 2 cc of frankly purulent fluid was expressed and suctioned with bedside canister. Patient was given first dose of Augmentin here. Close return precautions were discussed. Because patient at baseline without signs or symptoms of clinical decompensation, deemed appropriate for discharge. I discussed my clinical impression with patient and answered all questions. At this time, the evidence for any other entities in the differential is insufficient to warrant any further testing or ED observation. This was explained as well. Advisory was given that persistent or worsening symptoms require further evaluation. I confirmed the understanding of this discussion. National Sales Associate disclaimer Much of this encounter note is an electronic plastics design engineer spoken language to printed text. Electronic plastics design engineer of the spoken language may permit errors. Although I have reviewed the note, some errors may still exist. Critical Care Critical Care Time Critical Care Time: No
[2025-01-19 11:17] VITALS: BP 126/80; PULSE 82; RESP 18; TEMP 37.1; O2SAT 96
== END 2025-01-19 11:18 | disposition home or self-care (01) ==
PROVIDERS: Emergency Provider Emergency Medicine; PCP Physician Assistant
DX: O26.892 Other specified pregnancy related conditions, second trimester (principal); R22.0 Localized swelling, mass and lump, head; K04.7 Periapical abscess without sinus; Z3A.17 17 weeks gestation of pregnancy
CPT/HCPCS: 99283; J2003

== ENCOUNTER 2025-02-09 13:57 | Outpatient (CLI) | payer OTHER, SELFPAY ==
--- OUTSIDE RECORDS SUMMARY | 2023-04-30 11:43 | XMS_ITS | Continuity of Care Document ---
Author Organization [facility] Address [address] [place] [address] Phone Care Team Providers Care Real Estate Sales Agent Name Role Phone Stoney MSN, SENIOR PLANNER, Karis Unavailable Unavai lable Allergies, Adverse Reactions, [...] Location Reason(s) For Visit Diagnoses Date Provider [facility], [address] [place], [place], [facility], tel:[phone] 72 [facility] [place] No Information 3 Stoney Dyson. [address] [place], [place], [id number] , . tel:[phone] [facility], [address] [place], [place], [facility], tel:[phone] 72 [facility] [place] No Information 3 Isbell Mehnaz. . [facility], [address] [place] [address], [facility], tel:[phone] 72 [facility] [place] [place] follow up on labs (chief complaint) Body mass index [BMI] 19.9 or less, adultAnxietyOpioid dependence, uncomplicated Sep-0 3 Lua Karis. [address] [place], [place], [id number] , . tel:[phone] [facility], [address] [place] [address], [facility], [place] tel:[phone] 72 [facility] [place] LANG (chief complaint) Cannabis dependence, uncomplicatedOpioid dependence, uncomplicated 3 Sukhi Garza. [address] [place], [place], [id number] , [place]. tel:[phone] [facility], [address] [place] [address], [facility], [place] tel:[phone] 72 [facility]-HRSA [place] No Information 3 Sukhi Darby. . [facility], [address] [place] [address], [facility], tel:[phone] 72 [facility] [place] LANG (chief complaint) Opioid dependence, uncomplicatedCannabis dependence, uncomplicatedOpioid dependence with withdrawal 3 Sukhi Garza. [address] [place], [place], [address] , [place]. tel:[phone] [facility], [address] [place] [address], [facility], [place] tel:[phone] 72 [facility] HR[facility] [place] Opioid dependence with withdrawalAnxiety 3 Valyue Joyce. [address] [place], [place], [address] , [place]. tel:[phone] [facility], [address] [place] [address], [facility], [place] tel:[phone] 72 [facility] [place] No Information 3 Vallee Joyce. [address] [place], [place], [address] , [place]. tel:[phone] [facility], [address] [place] [address], [facility], [place] tel:[phone] 72 [facility] [place] [place] MAT physical (chief complaint) Opioid dependence with withdrawalEncounter for screening for depressionEncounter for screening examination for other mental health and behavioral disordersEncounter for screening for diseases of the blood and blood-forming organs and certain disorders involving the immune mechanismAnxiety 3 Stoney Dyson. [address] [place], [place], [address] , [place]. tel:[phone] [facility], [address] [place] [address], [address], tel:[phone] 72 [facility] [place] No Information 3 Isbell Kayla. [address] [place], [place], [id number] , [place]. tel:[phone] Family History Family Member Type Diagnosis Age [...] Registry Payers Payer name Insurance type Covered republican ID Authoriza tiluz marina(s) Hc- Covered Under Anders CI [id number] Hc- Covered Under Anders CI [id number] Social History Type Description Quantity Date Captured [...] Goal Vitamin B12. Due on due Goal TSH. Due on due Goal CBC. Due on due Goal Tobacco Use Cessation Counse ling. Due on due Goal HIV screen due Goal Obtain Height, Weight, and B DE. Due on due Goal TSH. Due on due Goal Tobacco Use Cessation Counse ling. Due on due Goal CBC. Due on due Goal Generalized Anxi ety Disorder - 7 (MANUELA-7). Due on due Goal Influenza vaccine. Due on due Goal Unhealthy drug use screening . Due on due Goal HIV screen. Due on due Goal Vitamin D. Due on due Goal Tobacco Use Screening. Due o n due Goal Depression screening. Due on due Goal Drug Abuse Screening Test (D AST-10). Due on due Goal Obtain Height, Weight, and B DE. Due on due Goal Diabetes screening. Due on due Goal PAP. Due on due Goal Follow up Plan f or abnormal BMI (Less than 18.5, greater than 25). Due on due Goal Vitamin B12. Due on 023 due Goal Hepatitis C Screening. Due o n due Goal CMP. Due on due Goal Drug Abuse Screening Test (D AST-10). Due on due Goal Diabetes screening. Due on due Goal Hepatitis C Screening. Due o n due Goal PAP. Due on due Goal CMP. Due on due Goal Follow up Plan f or abnormal BMI (Less than 18.5, greater than 25). Due on due Goal Obtain Height, Weight, and B DE. Due on due Goal Tobacco Use Cessation Counse ling. Due on due Goal Unhealthy drug use screening . Due on due Goal HIV screen. Due on 23 due Goal Vitamin D. Due on due Goal Tobacco Use Screening. Due o n due Goal Generalized Anxi ety Disorder - 7 (MANUELA-7). Due on due Goal CBC. Due on due Goal Depression screening. Due on due Goal Influenza vaccine. Due on due Goal TSH. Due on due Goal Vitamin B12. Due on 023 due Goal Dietary education for weight gain completed Goal Diabetes screening. Due on due Goal Unhealthy drug use screening . Due on due Goal Tobacco Use Screening. Due o n due Goal Drug Abuse Screening Test (D AST-10). Due on due Goal Generalized Anxi ety Disorder - 7 (MANUELA-7). Due on due Goal Vitamin D. Due on due Goal Depression screening. Due on due Goal TSH. Due on due Goal Vitamin B12. Due on 023 due Goal Influenza vaccine. Due on due Goal Hepatitis C Screening. Due o n due Goal HIV screen. Due on due Goal Follow up Plan f or abnormal BMI (Less than 18.5, greater than 25). Due on due Goal Obtain Height, Weight, and B DE. Due on due Goal Tobacco Use Cessation Counse ling. Due on due Goal CBC. Due on due Goal PAP. Due on due Goal CMP. Due on due Goal Unhealthy drug use screening . Due on due Goal Tobacco Use Cessation Counse ling. Due on due Goal Vitamin B12. Due on 023 due Goal PAP. Due on due Goal TSH. Due on due Goal Drug Abuse Screening Test (D AST-10). Due on due Goal CMP. Due on due Goal Obtain Height, Weight, and B DE. Due on due Goal Influenza vaccine. Due on due Goal Vitamin D. Due [...] greater than 25). Due on due Goal TSH. Due on [...] due Goal Obtain Height, Weight, and B DE. Due on due Goal CBC. Due on due Goal Lipid panel. Due on due Goal Influenza vaccine. Due [...] due Goal Obtain Height, Weight, and B DE. Due on due Goal Diabetes screening. Due on due Goal Tobacco Use Screening. Due o n due Goal TSH. Due on due Goal Tobacco Use Cessation Counse ling. Due on due Goal CMP. Due on due Goal Depression screening. Due on due Goal HIV screen. Due on due Goal Obtain Height, Weight, and B DE. Due on due Goal Influenza vaccine. Due [...] and/or Guardian has verified being in the [facility] and has given verbal consent to [...] chronic. 27 y/o S/W/F who resides in [facility] with paramour of 3 years. She moved from [facility] 3 years ago to [place]. 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 Quit school in 9th grade due to not being interested. She did obtain her GED. She has been in penitentiary 4-5 times and longest time served 1 [...] start our MAT program. Pt moved to [place] recently from [place] with her fiance, whom is from here. [...]
--- NOTE | 2025-02-09 14:00 | US_ITS ---
PROCEDURE: US OB /MATERNAL DETAIL CLINICAL INDICATION: 20 week anatomy COMPARISON: No exams were available for comparison FINDINGS: Transabdominal sonographic images of the pelvis were obtained. From her established due date she is 20 weeks 0 days. Single viable intrauterine gestation. Breech position. Placenta: Posteriorplacenta grade 1. At the edge of the placenta there may be an area that is circumvallate with the edge folded back upon itself. There is an average amount of fluid. The cervix appears satisfactory. Closed and measuring 2.74 cm in length. Complete survey performed and was unremarkable on the submitted images as in PACS. No discrete anomalies identified on survey imaging by technologist. Active fetus. Three-vessel cord with satisfactory umbilical cord insertion. 4- chamber heart noted. Situs, aortic arch, LVOT, RVOT, three-vessel view appear normal. Survey of brain & ventricles Unremarkable. Cerebellum, thalamus, choroid plexus, cisterna magna appear normal. Face and neck survey unremarkable. Profile, nasion, lips and nose appeared normal. Diaphragm and chest views unremarkable. Abdomen: Both kidneys noted and unremarkable. Stomach and bladder noted and satisfactory. Spine: Survey of the spine satisfactory with no anomalies identified nor imaged. Cervical, thoracic, lower spine was not visualized due to position.. Both arms and legs noted. Amniotic Fluid: Adequate. MVP 5.25 cm Measurements: Average ultrasound age 20weeks 4days. Estimated due date by ultrasound age 1106/25/2025. Estimated weight 349g BPD = 20weeks 6days HC = 20weeks 4days AC = 20weeks 5days FL = 20weeks 0 days Growth Percentile= 67 Heart Rate = 152bpm Cerebellum = 20weeks 0 days Humerus = 20weeks 6days HC/AC is 1.16 FL/BPD is 0.65 FL/AC is 0.2 IMPRESSION: 1. Viable fetus in the breech presentation with a posterior placenta grade 1. The placenta may have an area that is circumvallate with the edge folded back upon itself. 2. The fluid is within normal limits with an MVP 5.25 cm. 3. The lower spine was not well visualized due to position and suggest follow-up in 2-3 weeks. 4. The rest of the anatomical scan appears normal. 5. biometry is consistent with the dates. Dictated by: Shemar Rodriguez MD 02/09/2025 16:14 Shemar Rodriguez MD in OV 02/09/2025 16:14
--- OUTSIDE RECORDS SUMMARY | 2025-02-09 14:00 | XMS_ITS | Data Portability ---
Author Organization [facility] [email or web address], [id number](CLOSED) Address [address] [place] [address] Assessment No assessment recorded. Plan of Treatment Reminders Order Date Submit Date Provider Last Modified By Organization Details Last Modified Time Details Appointments None recorded. Lab test, urine 2020 021 [email or web address] In-House Results, For Internal Use Only, Do Not Delete/merge, [id number] 12:59:11 Referral None recorded. Procedures None recorded. Surgeries None recorded. Imaging US, transvagina l 2020 021 [email or web address] Not available 16:23:08 US, obstetric, transvagina l 2020 021 [email or web address] Not available 16:48:38 Medication Orders Loestrin Fe 08/29 (28-Day) 1 mg-20 mcg (21)/75 mg (7) tablet 2020 021 [email or web address] [facility], [address], [place], [address], 1 08:07:32 Percocet 7.5 mg-325 mg tablet 2020 021 [email or web address] [facility], [address], [place], [address], 08:07:39 ondansetron 8 mg disintegrat ing tablet 2020 021 [facility], [address] [place], [address], 1 09:38:56 Lexapro 10 mg tablet 2020 021 [facility], [address] [place], [address], 09:38:56 trazodone 50 mg tablet 2020 021 [facility], [address] [place], [address], 2 09:11:56 Xanax 0.5 mg tablet 2020 021 [facility], [address] [place], [address], 12:59:14 Patient Targets Encounter Date Encounter Id Patient Goals Patient Target Last Modified By Organization Details Last Modified Time 02/14/2021 [id number] RA operative laparoscopy, excision of pelvic mass/cyst, chromotubation gramie Not available 02/14/2021 09:38:19 Patient Instructions Encounter Date Encounter Id Patient Instructions Last Modified By Organization Details Last Modified Time 11/15/2020 [id number] She is status po st methotrexate for [...] well. mago Not available 11/19/2020 10:14:50 11/28/2020 [id number] Her HCG is negat james today. She [...] we discussed potential surgery for the problem. brooklynnrahat Not available 11/28/2020 19:01:20 01/23/2021 [id number] f/u pre op marianalana Not available 01/08 16:21:39 Today we took ti me to discuss the above diagnosis. We discussed her treatment options. We discussed the risk, benefits, possible complications, and the short and fpc consequences of treatment. She was sent to the [facility] for consultation and coordination of care. marianalana Not available 01/23/2021 16:21:45 02/14/2021 [id number] acute pain after surgery: care instructions marianalana Not available 02/14/2021 09:38:53 No Aspirin betwe en now and surgery, Nothing to eat or drink at least 8 hour prior to surgery. Call between now and surgery should you experience any new illness. marianalana Not available 02/14/2021 09:37:52 Today we discuss ed the above procedure(s). She arrived at the decision to proceed through shared decision making after discussion of the risk, benefits, potential complications and consequences of the above procedure(s). 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 After detailed discussion and answering all questions to her satisfaction with regard to the above procedure(s) she wishes to proceed. Written consents were reviewed, and signed. Her pre and post operative instructions were reviewd in detail today. jose eduardo Not available 02/14/2021 09:37:58 03/01/2021 [id number] You have complet ed your post operative [...] For Internal Use Only, Do Not Delete/merge, [id number] 11/15/2020 12:48:57 02/22/20 21 02/21/2021 PREGN CALLIE URINE - POCT urine - poct NEGATI VE negati ve Test Perfo med at: [address] T Not Available [facility] [address] [place], [address], 02/21/2021 13:01:17 02/22/20 21 02/21/2021 PREGN CALLIE URINE - POCT performing lab: POC - [facility] [address] [facility] [address] Not Available [facility] [address] [place], [address], 02/21/2021 13:01:17 02/22/20 21 02/21/2021 CBC W/AUT O DIFFE RENTI AL WBC count bld 9.2 K/mm3 4.8-10 .8 Not Available [facility] [address] [place], [address], 02/21/2021 14:20:18 02/22/20 21 02/21/2021 CBC W/AUT O DIFFE RENTI AL red blood cell 4.11 mil/m m 3.80-5 .50 Not Available [facility] [address] [place], [address], 02/21/2021 14:20:18 02/22/20 21 02/21/2021 CBC W/AUT O DIFFE RENTI AL hemoglobin 10.9 gm/dL 11.7-1 5.5 low Not Available [facility] [address] [place], [address], 02/21/2021 14:20:18 02/22/20 21 02/21/2021 CBC W/AUT O DIFFE RENTI AL hematocrit 33.4 % 33.0-4 5.0 Not Available [facility] [address] [place], [address], 02/21/2021 14:20:18 02/22/20 21 02/21/2021 CBC W/AUT O DIFFE RENTI AL mean cell volume 81 fL 78-100 Not Available [facility] [address] [place], [address], 02/21/2021 14:20:18 02/22/20 21 02/21/2021 CBC W/AUT O DIFFE RENTI AL mean cell HGB 26.5 pg 28.0-3 4.0 low Not Available [facility] [address] [place], [address], 02/21/2021 14:20:18 02/22/20 21 02/21/2021 CBC W/AUT O DIFFE RENTI AL mean cell HGB concentratio n 32.6 g/dL 32.0-3 6.0 Not Available [facility] [address] [place], [address], 02/21/2021 14:20:18 02/22/20 21 02/21/2021 CBC W/AUT O DIFFE RENTI AL red cell distribution width 14.6 % 11.5-1 4.5 high Not Available [facility] [address] [place], [address], 02/21/2021 14:20:18 02/22/20 21 02/21/2021 CBC W/AUT O DIFFE RENTI AL platelet count 215 K/mm3 130-40 0 Not Available [facility] [address] [place], [address], 02/21/2021 14:20:18 02/22/20 21 02/21/2021 CBC W/AUT O DIFFE RENTI AL mean platelet volume 9.7 um3 6.0-9. 5 high Not Available [facility] [address] [place], [address], 02/21/2021 14:20:18 02/22/20 21 02/21/2021 CBC W/AUT O DIFFE RENTI AL neutrophil % 63.3 % 45.0-7 5.0 Not Available [facility] [address] [place], [address], 02/21/2021 14:20:18 02/22/20 21 02/21/2021 CBC W/AUT O DIFFE RENTI AL lymphocyte % 29.6 % 20-40 Not Available [facility] [address] [place], [address], 02/21/2021 14:20:18 02/22/20 21 02/21/2021 CBC W/AUT O DIFFE RENTI AL monocyte % 6.0 % 0-10.5 Not Available [facility] [address] [place], [address], 02/21/2021 14:20:18 02/22/20 21 02/21/2021 CBC W/AUT O DIFFE RENTI AL eosinophil % 0.5 % 0-7 Not Available [place] [address] [place], [address], 02/21/2021 14:20:18 02/22/20 21 02/21/2021 CBC W/AUT O DIFFE RENTI AL basophil % 0.6 % 0-2.0 Not Available [place] [address] [place], [address], 02/21/2021 14:20:18 02/22/20 21 02/21/2021 CBC W/AUT O DIFFE RENTI AL performing lab: GC - [facility] LUCIANACam Damon [address] [facility] [address] Not Available [facility] [address] [facility], [place], [address], 02/21/2021 14:20:18 02/26/20 21 02/25/2021 SURGI LAXMI results RUN DATE: 02/25 [facility] LUCIANACam R PAGE 1 RUN TIME: [address] [place] [address] LIS Speci men Inqui ry ----- ----- ----- ----- ----- ----- ----- ----- ----- ----- ----- ----- ----- ----- ----- ----- ----- ----- -- Name: SANDIE ONTIVEROS Age/S ex: 26/F Locat ion: E.OPS [id number] Unit# : [id number] Statu s: [facility] Room/ Bed: Re02/21 Disch : Att Dr: Axel Louis DO ----- ----- ----- ----- ----- ----- ----- ----- ----- ----- ----- ----- ----- ----- ----- ----- ----- ----- -- Speci men: SU21: CBQ:3 797 Recei joshua: 02/22-0 820 Statu s: NORA Req#: [id number] Colle cted: 02/21- Sp Type: SURGI LAXMI Subm Doc: Axel Louis DO SPECI MEN: A. FALLO PIAN TUBE, NOS - ENDOM ETRIO MA RIGHT FALLO PIAN TUBE FINAL DIAGN OSIS RIGHT FALLO PIAN TUBE, ROBOT IC- SISTE D OPERA TIVE LAPAR OSCOP Y WITH RESEC TION OF DISTA L PORTI ON OF RIGHT FALLO PIAN TUBE WITH ENDOM ETRIO MA AND LYSIS OF ADHES IONS: - INFLA MED ENDOM ETRIO MA WITH HEMOS IDERI N DEPOS ITION AND THROM BUS INVOL VING THE DISTA L FALLO PIAN TUBE SEGME NT. - NEGAT JAMES FOR GRANU MAYO AND TUMOR . Dicta christina by: DEVAN GUIDO MD DESCR IPTIO N Recei joshua in forma [...] one piece per casse tte. SALINA/mm /[id number] Techn ical compo nent perfo rmed at [facility] laxmi Labor atory [address] [place] [address] CLINI LAXMI INFOR MATIO N RIGHT LOW QUADR ANT ABDOM INAL SWELL ING/M ASS PATH PROCE DURES :8830 4 RUN DATE: 02/25 [facility] PAGE 2 RUN TIME: [address] [place] [address] LIS Speci men Inqui ry APRYL T,SANDIE ROD SU21: CBQ:3 797 COPIE S TO: NO PRIMA RY OR FAMIL Y PHYSI Axel Garcia B DO [address] [place] [address] PROCE DURES : [id number] (02/07 [birth year]/30- 1849) Thai johnson by: Rebekah MARTINEZ MD Date: 02/25 ----- ----- ----- ----- ----- ----- ----- ----- ----- ----- ----- ----- ----- ----- ----- ----- ----- ----- -- END OF REPOR T Not Available [facility] [address], [place], [address], 02/25/2021 20:04:42 11/29/19 21 US, obste tric, trans vagin al No observ ation record ed. [email or web address] Not Available 2020 19:00:51 11/29/19 21 11/28/2020 ultra sound image s RAD [email or web address] [facility] [address], [place], [address], 11/28/2020 19:00:57 01/24/20 21 US, trans vagin al No observ ation record ed. jose eduardo Not Available 2020 09:35:12 01/24/20 21 01/23/2021 ultra sound image s RAD jose eduardo [facility] [address], [place], [address], 01/25/2021 09:35:00 Result Notes None recorded. Procedures Surgical History Date Name Laterality Status Provider Name and Address Organization Details Recorded Time 03/01/20 Suture/Staple Removal Procedure Note ([facility]) completed Juanjo Major [facility] [employer] [facility] 03/01/2021 11:04:12 02/22/20 LAPAROSCOPY, SURGICAL WITH FULGURATION/EXCIS ION OF LESIONS OF THE OVARY/PELVIC VISCERA/PERITONEA L SURFACE (SURG) completed Ruby Armstrong [facility] [employer] [facility] 02/26/2021 16:31:31 08/10/19 18 Date of Last Pap Smear completed Juanjo Major [facility] [employer] [facility] [place] 02/14/2021 09:24:40 Hand tendon reconstruction completed Ashley Sims [facility] [employer] [facility] [place] 11/15/2020 12:41:29 Imaging Results None recorded. Procedure [...] Body mass index (BMI) Body height Systolic And Diastolic Provider Name and Address Organization Details Last Updated DateTime 11/15/2020 93430.52 g 23.4 kg/m2 180.34 cm 106/64 mm[Hg] Ashley Sims [facility] [employer] [facility] [place] 11/15/2020 12:32:02 Date Recorded Body height Body mass index (BMI) Body weight Systolic And Diastolic Provider Name and Address Organization Details Last Updated DateTime 11/28/2020 180.34 cm 23 kg/m2 25508.74 g 110/80 mm[Hg] Mya Ordaz (TERMED) [facility] [employer] [facility] 11/28/2020 16:27:34 Date Recorded Body height Body mass index (BMI) Body weight Systolic And Diastolic Provider Name and Address Organization Details Last Updated DateTime 01/23/2021 180.34 cm 22.2 kg/m2 30550.19 g 124/72 mm[Hg] Juanjo Major [facility] 01/23/2021 16:04:28 Date Recorded Body height Body mass index (BMI) Body weight Systolic And Diastolic Provider Name and Address Organization Details Last Updated DateTime 02/14/2021 180.34 cm 21.6 kg/m2 48801.82 g 98/52 mm[Hg] [facility] 02/14/2021 09:30:23 Date Recorded Body height Body mass index (BMI) Body weight Systolic And Diastolic Provider Name and Address Organization Details Last Updated DateTime 03/01/2021 180.34 cm 20.9 kg/m2 37924.86 g 112/70 mm[Hg] [facility] 03/01/2021 11:04:08 Social History Question Answer Notes LastModified by FTB[employer] ion Details LastModified Time Tobacco Smoking Status Current Every Day Smoker vape only Ashley Sims [facility] 11/15/2020 12:40:13 Is Blood Transfusion Acceptable [...] Functional Status Question Answer Note LastModified by [employer] ion Details LastModified Time What is your level of alcohol consumption? Occasional Information not available 11/15/2020 Do you or have you ever used e-cigarettes or vape? Current user of electronic cigarettes [email or web address] Information not available 01/23/2021 What is your exercise level? Heavy Information not available 11/15/2020 Mental Status None recorded. Family History Relationship Description Onset Age of this Age Resolved Age Notes LastModified by Organization Details LastModified Time Mother Hypertensive disorder ecavelli Not available 2020 12:10:04 Mother Myocardial infarction [email or web address] Not available 01/23 14:45:02 Mother Heart disease ecavelli Not available 2020 12:36:54 Father Malignant neoplasm of skin [email or web address] Not available 2020 14:45:03 Father Infectious disease of lung [facility] Not available 01/23/2021 14:45:03 Maternal Grandmother Myocardial infarction [facility] Not available 01/23/2021 14:45:03 Maternal Grandfather Malignant neoplasm of lung [facility]elli Not available 11/15/2020 12:38:17 Paternal Grandfather Sepsis [facility] Not available 01/23/2021 14:45:03 Paternal Grandmother Hypertensive [...] hinitis N Psych- PMS/PMDD N Pulmonary-Other N Endocrinology- Glucose Intolerance/Insul in Resistance N Pulmonary- Lung Disease N Psych- Anxiety Disorder Y GI- Reflux/Ulcers [...] Neurology- Multiple Sclerosis N GI- Hemorrhoids N Hematology-Blood Clotting Disorder/Facto r V Leiden N ID- Rheumatic Fever N Neurology-Other N Endocrinology- Osteoporosis N Psych- Depression N Do you have any current or past medical conditions? N Hematology-Other N Dermatology-Eczema/Psoriasis N Dermatology-Other N ID- Tuberculosis/Positive PPD N Ortho-Chronic Back Pain N Rheumatology-Autoimmune Disease N Cancer- Ovary N [...] Vulvar N Cancer- Vaginal N GI-Other N Hematology-Bleeding Disorder N Neurology- Headaches/Migraines N Endocrinology- Diabetes N Cancer- Cervical N [...] SNOMED-CT Code Diagnosis ICD10 Code Diagnosis Note [id number] Desmond Sousa DO [id number] [place] [address] 1 11/15/2020 11:26:42 11/15/2020 12:58:25 Ectopic 77158324 O00.90 Moderate anxiety 6157159 6 F41.1 with occasional panic attacks [id number] Desmond Sousa DO [id number] [place] [address] 1 11/28/2020 14:58:39 11/28/2020 16:48:38 Ectopic [id number] O00.90 [id number] Kole Louis [address] [place] [address] 1 01/23/2021 14:44:45 01/23/2021 16:23:07 Intra-abdominal and pelvic swelling, mass and lump 720235531 R19.03 Persistent insomnia 1919 95299 G47.09 [id number] Kole Louis [address] [place] [address] 1 02/14/2021 09:13:27 02/14/2021 09:36:56 Intra-abdominal and pelvic swelling, mass and lump 504003689 R19.03 Mixed anxi ety and depressive disorder 416315756 F41.8 Postoperative pain 99026 9007 G89.18 [id number] Kole Louis [address] [address] [place] [address] 1 03/01/2021 10:25:43 03/01/2021 11:50:47 Procedure on genitourinary system 994273210 Z48.816 Uses oral contraception 2182983 Z30.41 Endometrio sis of pelvis 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 N80.3 Health Concerns Section Related Observation LastModified by Organization Detai ls LastModified Time None Recorded Concern Status LastModified by Organization Details LastModified Time None Recorded Advance Directives Directive None Recorded Payers Insurance Date Sequence Insurance Name Policy Number Policy Webster Covered Member ID Webster Member ID Guarantor Name 07/23/2021 1 [facility] (MEDICAID REPLACEMENT - HMO) Maida Pandya [id number] Maida Gordon Notes Date Note Type Note Provider Name and Address Organization Details Recorded Time 11/15/2020 text/html Abnormal Pregnan cy ([facility])Reported bypatient.Patient presents for:follow-up problem *Location:fallopian tube * Duration:2 weeks * Timing:onset: sudden * Severity:moderate * Context:LMP:09/01/19 21; smoking yes Diagnostic Testing:Blood Type: positive *Associated Signs & Symptoms:vaginal bleeding Previous Treatments:methotrex ate Patient presents for follow from ER for Ectopic. Desmond Sousa DO [address], [place], [place], [address] [place] [address], [facility] [employer] 11/19/2020 10:15:49 11/28/2020 text/html Patient presents today for follow-up with TVUS.She has no pain or bleeding symptoms. Desmond Sousa DO [address] [facility], [place], [place], [address] [place] [address], [facility] [employer] 11/28/2020 19:01:36 01/23/2021 text/html Patient presents to the office today for f/u on ectopic . She c/o her moods being up and down. She states she is still having severe anxiety with depression. She also c/o pelvic pain. Kole Louis DO [address] [facility], [address], [place], [place], [address] [place] [address], [facility] [employer] 01/23/2021 16:23:07 02/14/2021 text/html Pre-Op ([facility])Reported bypatient.Procedure Date:02/21/2021 Informed Consent Obtained and Alternative [...] precautions Blood Transfusion Acceptable:yes Healthcare Power of Inventory Associate And Driver:noNotes:Per sistant anxiety. Patient presents to the office today for pre-op visit. Kole Louis DO [address] [facility], [address], [place], [address], [facility] [email or web address] [facility] 02/21/2021 06:57:35 03/01/2021 text/html Post-Op ([facility])Reported bypatient.Procedure Date:02/21/2021 Surgical Procedure:Robotic assisted operative laparoscopy [...] suture removal. Kole Louis DO [address] [facility], [address], [place], [address], [facility] [email or web address] [facility] 03/01/2021 11:50:27 OBGyn Episode No OBEpisode recorded.
== END 2025-02-09 23:59 | disposition home or self-care (01) ==
LOC: RAD 13:58
PROVIDERS: PCP Physician Assistant; Visit Provider Obstetrics & Gynecology
DX: O32.1XX0 Maternal care for breech presentation, not applicable or unspecified (principal); O28.3 Abnormal ultrasonic finding on antenatal screening of mother; O99.332 Smoking (tobacco) complicating pregnancy, second trimester; O99.322 Drug use complicating pregnancy, second trimester; O09.892 Supervision of other high risk pregnancies, second trimester; F17.200 Nicotine dependence, unspecified, uncomplicated; F11.20 Opioid dependence, uncomplicated; Z28.39 Other underimmunization status; Z3A.20 20 weeks gestation of pregnancy
CPT/HCPCS: 76811

== ENCOUNTER 2025-02-27 12:48 | Outpatient (CLI) | payer OTHER, SELFPAY ==
--- OUTSIDE RECORDS SUMMARY | 2025-02-27 12:50 | XMS_ITS | Data Portability ---
Author Organization [facility] Ramamia, [id number](CLOSED) Address [address] [place] [address] Assessment No assessment recorded. Plan of Treatment Reminders Order Date Submit Date Provider Last Modified By Organization Details Last Modified Time Details Appointments None recorded. Lab test, urine 2020 021 [email or web address] In-House Results, For Internal Use Only, Do Not Delete/merge, [id number] 12:59:11 Referral None recorded. Procedures None recorded. Surgeries None recorded. Imaging US, transvagina l 2020 021 [email or web address] Not available 16:23:08 US, obstetric, transvagina l 2020 021 [email or web address] Not available 16:48:38 Medication Orders Loestrin Fe 08/29 (28-Day) 1 mg-20 mcg (21)/75 mg (7) tablet 2020 021 [email or web address] [facility], [address], [place], [address], 1 08:07:32 Percocet 7.5 mg-325 mg tablet 2020 021 [email or web address] [facility], [address], [place], [address], 08:07:39 ondansetron 8 mg disintegrat ing tablet 2020 021 [facility], [address] [place], [address], 1 09:38:56 Lexapro 10 mg tablet 2020 021 [facility], [address] [place], [address], 09:38:56 trazodone 50 mg tablet 2020 021 [facility], [address] [place], [address], 2 09:11:56 Xanax 0.5 mg tablet 2020 021 [facility], [address] [place], [address], 12:59:14 Patient Targets Encounter Date Encounter Id Patient Goals Patient Target Last Modified By Organization Details Last Modified Time 02/14/2021 [id number] RA operative laparoscopy, excision of pelvic mass/cyst, chromotubation gramie Not available 02/14/2021 09:38:19 Patient Instructions Encounter Date Encounter Id Patient Instructions Last Modified By Organization Details Last Modified Time 11/15/2020 [id number] She is status po st methotrexate for [...] well. mago Not available 11/19/2020 10:14:50 11/28/2020 [id number] Her HCG is negat james today. She [...] problem. brooklynnrahat Not available 11/28/2020 19:01:20 01/23/2021 [id number] f/u pre op marianalana Not available 01/08 16:21:39 Today we took ti me to discuss the above diagnosis. We discussed her treatment options. We discussed the risk, benefits, possible complications, and the short and jail consequences of treatment. She was sent to the bailer operators supervisor for consultation and coordination of care. marianalana Not available 01/23/2021 16:21:45 02/14/2021 [id number] acute pain after surgery: care instructions marianalana [...] to surrounding organs, and much less likely intermediate school teacher disability or . After detailed discussion and answering all questions to her satisfaction with regard to the above procedure(s) she wishes to proceed. Written consents were reviewed, and signed. Her pre and post operative instructions were reviewd in detail today. jose eduardo Not available 02/14/2021 09:37:58 03/01/2021 [id number] You have complet ed your post operative [...] For Internal Use Only, Do Not Delete/merge, [id number] 11/15/2020 12:48:57 02/22/20 21 02/21/2021 PREGN CALLIE URINE - POCT urine - poct NEGATI VE negati ve Test Perfo med at: [address] T Not Available [facility] [address] [place], [address], 02/21/2021 13:01:17 02/22/20 21 02/21/2021 PREGN CALLIE URINE - POCT performing lab: [facility] - [facility] [address] [facility] [address] Not Available [facility] [address] [place] [address] [place], [address], 02/21/2021 13:01:17 02/22/20 21 02/21/2021 CBC W/AUT O DIFFE RENTI AL WBC count bld 9.2 K/mm3 4.8-10 .8 Not Available [facility] [address] [place], [address], 02/21/2021 14:20:18 02/22/20 21 02/21/2021 CBC W/AUT O DIFFE RENTI AL red blood cell 4.11 mil/m m 3.80-5 .50 Not Available [facility] [address] [place], [address], 02/21/2021 14:20:18 02/22/20 21 02/21/2021 CBC W/AUT O DIFFE RENTI AL hemoglobin 10.9 gm/dL 11.7-1 5.5 low Not Available [facility] [address] [place], [address], 02/21/2021 14:20:18 02/22/20 21 02/21/2021 CBC W/AUT O DIFFE RENTI AL hematocrit 33.4 % 33.0-4 5.0 Not Available [facility] [address] [place], [address], 02/21/2021 14:20:18 02/22/20 21 02/21/2021 CBC W/AUT O DIFFE RENTI AL mean cell volume 81 fL 78-100 Not Available [facility] [address] [place], [address], 02/21/2021 14:20:18 02/22/20 21 02/21/2021 CBC W/AUT O DIFFE RENTI AL mean cell HGB 26.5 pg 28.0-3 4.0 low Not Available [facility] [address] [place], [address], 02/21/2021 14:20:18 02/22/20 21 02/21/2021 CBC W/AUT O DIFFE RENTI AL mean cell HGB concentratio n 32.6 g/dL 32.0-3 6.0 Not Available [facility] [address] [place], [address], 02/21/2021 14:20:18 02/22/20 21 02/21/2021 CBC W/AUT O DIFFE RENTI AL red cell distribution width 14.6 % 11.5-1 4.5 high Not Available [facility] [address] [place], [address], 02/21/2021 14:20:18 02/22/20 21 02/21/2021 CBC W/AUT O DIFFE RENTI AL platelet count 215 K/mm3 130-40 0 Not Available [facility] [address] [place], [address], 02/21/2021 14:20:18 02/22/20 21 02/21/2021 CBC W/AUT O DIFFE RENTI AL mean platelet volume 9.7 um3 6.0-9. 5 high Not Available [facility] [address] [place], [address], 02/21/2021 14:20:18 02/22/20 21 02/21/2021 CBC W/AUT O DIFFE RENTI AL neutrophil % 63.3 % 45.0-7 5.0 Not Available [facility] [address] [place], [address], 02/21/2021 14:20:18 02/22/20 21 02/21/2021 CBC W/AUT O DIFFE RENTI AL lymphocyte % 29.6 % 20-40 Not Available [facility] [address] [place], [address], 02/21/2021 14:20:18 02/22/20 21 02/21/2021 CBC W/AUT O DIFFE RENTI AL monocyte % 6.0 % 0-10.5 Not Available [facility] [address] [place], [address], 02/21/2021 14:20:18 02/22/20 21 02/21/2021 CBC W/AUT O DIFFE RENTI AL eosinophil % 0.5 % 0-7 Not Available [facility] [address] [place], [address], 02/21/2021 14:20:18 02/22/20 21 02/21/2021 CBC W/AUT O DIFFE RENTI AL basophil % 0.6 % 0-2.0 Not Available [place] [address] [place], [address], 02/21/2021 14:20:18 02/22/20 21 02/21/2021 CBC W/AUT O DIFFE RENTI AL performing lab: GC - [facility] LUCIANACam Damon [address] [facility] [address] Not Available [facility] [address] [facility], [place], [address], 02/21/2021 14:20:18 02/26/20 21 02/25/2021 SURGI LAXMI results RUN DATE: 02/25 [facility] LUCIANA[facility] R PAGE 1 RUN TIME: [address] [place] [address] LIS Speci men Inqui ry ----- ----- ----- ----- ----- ----- ----- ----- ----- ----- ----- ----- ----- ----- ----- ----- ----- ----- -- Name: SANDIE ONTIVEROS Age/S ex: 26/F Locat ion: E.OPS [id number] Unit# : [id number] Statu s: [facility] [facility] Bed: Re02/21 Disch : Att Dr: Axel Louis DO ----- ----- ----- ----- ----- ----- ----- ----- ----- ----- ----- ----- ----- ----- ----- ----- ----- ----- -- Speci men: SU21: CBQ:3 797 Recei joshua: 02/22-0 820 Statu s: NORA Req#: [id number] Colle cted: 02/21- Sp Type: SURGI [...] one piece per casse tte. SALINA/mm /[id number] Techn ical compo nent perfo rmed at [facility] laxmi Labor atory [address] [place] [address] CLINI LAXMI INFOR MATIO N RIGHT LOW QUADR ANT ABDOM INAL SWELL ING/M ASS PATH PROCE DURES :8830 4 RUN DATE: 02/25 [facility] PAGE 2 RUN TIME: [address] [place] [address] LIS Speci men Inqui ry APRYL T,SANDIE ROD SU21: CBQ:3 797 COPIE S TO: NO PRIMA RY OR FAMIL Y PHYSI Axel Garcia B DO [address] [place] [address] PROCE DURES : [id number] (02/07 04/30- 1850) Thai johnson by: Rebekah MARTINEZ MD Date: 02/25 ----- ----- ----- ----- ----- ----- ----- ----- ----- ----- ----- ----- ----- ----- ----- ----- ----- ----- -- END OF REPOR T Not Available [facility] [address], [place], [address], 02/25/2021 20:04:42 11/29/19 21 US, obste tric, trans vagin al No observ ation record ed. [email or web address] Not Available 2020 19:00:51 11/29/19 21 11/28/2020 ultra sound image s RAD [email or web address] [facility] [address], [place], [address], 11/28/2020 19:00:57 01/24/20 21 US, trans vagin al No observ ation record ed. jose eduardo Not Available 2020 09:35:12 01/24/20 21 01/23/2021 ultra sound image s RAD jose eduardo [facility] [address], [place], [address], 01/25/2021 09:35:00 Result Notes None recorded. Procedures Surgical History Date Name Laterality Status Provider Name and Address Organization Details Recorded Time 03/01/20 Suture/Staple Removal Procedure Note ([facility]) completed Juanjo Major [facility] 03/01/2021 11:04:12 02/22/20 LAPAROSCOPY, SURGICAL WITH FULGURATION/EXCIS ION OF LESIONS OF THE OVARY/PELVIC VISCERA/PERITONEA L SURFACE (SURG) completed Ruby Armstrong [facility] 02/26/2021 16:31:31 08/10/19 18 Date of Last Pap Smear completed Juanjo Major [facility] 02/14/2021 09:24:40 Hand tendon reconstruction completed Ashley Sims [facility] 11/15/2020 12:41:29 Imaging Results None recorded. Procedure [...] Address Organization Details Last Updated DateTime 11/15/2020 08159.52 g 23.4 kg/m2 180.34 cm 106/64 mm[Hg] Ashley Sims [facility] 11/15/2020 12:32:02 Date Recorded Body height Body mass index (BMI) Body weight Systolic And Diastolic Provider Name and Address Organization Details Last Updated DateTime 11/28/2020 180.34 cm 23 kg/m2 11711.74 g 110/80 mm[Hg] Mya Ordaz (TERMED) [facility] 11/28/2020 16:27:34 Date Recorded Body height Body mass index (BMI) Body weight Systolic And Diastolic Provider Name and Address Organization Details Last Updated DateTime 01/23/2021 180.34 cm 22.2 kg/m2 49101.19 g 124/72 mm[Hg] Juanjo Major [facility] 01/23/2021 16:04:28 Date Recorded Body height Body mass index (BMI) Body weight Systolic And Diastolic Provider Name and Address Organization Details Last Updated DateTime 02/14/2021 180.34 cm 21.6 kg/m2 76084.82 g 98/52 mm[Hg] [facility] 02/14/2021 09:30:23 Date Recorded Body height Body mass index (BMI) Body weight Systolic And Diastolic Provider Name and Address Organization Details Last Updated DateTime 03/01/2021 180.34 cm 20.9 kg/m2 69249.86 g 112/70 mm[Hg] [facility] 03/01/2021 11:04:08 Social History Question Answer Notes LastModified by LetGive ion Details LastModified Time Tobacco Smoking Status Current Every Day Smoker vape only Ashley Sims [facility] 11/15/2020 12:40:13 Is Blood Transfusion Acceptable In [...] Functional Status Question Answer Note LastModified by YieldMo[employer] ion Details LastModified Time What is your level of alcohol consumption? Occasional Information not available 11/15/2020 Do you or have you ever used e-cigarettes or vape? [email or web address] Information not available 01/23/2021 What is your exercise level? Heavy Information not available 11/15/2020 Mental Status None recorded. Family History Relationship Description Onset Age of this Age Resolved Age Notes LastModified by Organization Details LastModified Time Mother Hypertensive disorder ecavelli Not available 2020 12:10:04 Mother [facility]ocardial infarction [email or web address] Not [facility] 01/23 14:45:02 Mother Heart disease ecavelli Not available 2020 12:36:54 Father Malignant neoplasm of skin [email or web address] Not available 2020 14:45:03 Father Infectious disease of lung [facility] Not available 01/23/2021 14:45:03 Maternal Grandmother Myocardial infarction [facility] Not available 01/23/2021 14:45:03 Maternal Grandfather Malignant neoplasm of lung dece [facility] ec[facility]elli Not available 11/15/2020 12:38:17 Paternal Grandfather Sepsis [facility] Not available 01/23/2021 14:45:03 Paternal Grandmother Hypertensive disorder ecavelli Not available 2020 12:38:56 Medical History Condition Response Neurology- Memory Loss/Dementia N Neurology- Stroke/TIA N Dermatology-Acne N Cancer- Genetic Screening N Endocrinology- Vitamin Deficiency N Endocrinology-Other N Hematology-Anemia N Cardiology- Atrial fib/atrial flutter N Nephrology-Renal Disease N Neurology- Seizures/Epilepsy N Cardiology- Heart Attack N Ortho-Fractures N Reviewed with no changes N Neurology- Neuropathy N Endocrinology- Prolactinoma N Urology- Recurrent Urinary [...] N Endocrinology- Osteoporosis N Psych- Depression N Hematology-Other N Do you have any current or past medical conditions? N Ortho-Chronic Back Pain N ID- Tuberculosis/Positive PPD N Dermatology-Other N Dermatology-Eczema/Psoriasis N Rheumatology-Autoimmune Disease N Cardiology- High Cholesterol N Cancer- Ovary N Cardiology- Heart Arrhythmia N Urology- Kidney or Bladder Problems N Psych- Mental Disorder N Psych-other N Hematology-DVT/Pulmonary Embolism N Endocrinology- Hyperthyroidism N Endocrinology- Thyroid Problems [...] SNOMED-CT Code Diagnosis ICD10 Code Diagnosis Note [id number] Desmond Sousa DO [id number] [place] [address] 1 11/15/2020 11:26:42 11/15/2020 12:58:25 Ectopic 77731121 O00.90 Moderate anxiety 2433090 6 F41.1 with occasional panic attacks [id number] Desmond Sousa DO [id number] [place] [address] 1 11/28/2020 14:58:39 11/28/2020 16:48:38 Ectopic 28418262 O00.90 [id number] Kole Louis [address] [place] [address] 1 01/23/2021 14:44:45 01/23/2021 16:23:07 Intra-abdominal and pelvic swelling, mass and lump 939300784 R19.03 Persistent insomnia 1919 84473 G47.09 [id number] Kole Louis [address] [place] [address] 1 02/14/2021 09:13:27 02/14/2021 09:36:56 Intra-abdominal and pelvic swelling, mass and lump 885531066 R19.03 Mixed anxi ety and depressive disorder 848416161 F41.8 Postoperative pain 10431 9007 G89.18 [id number] Kole Louis [address] [address] [place] [address] 1 03/01/2021 10:25:43 03/01/2021 11:50:47 Procedure on genitourinary system 146979118 Z48.816 Uses oral contraception 3348928 Z30.41 Endometrio sis of pelvis 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 Desmond Sousa DO [address] [facility] [facility] [address], [place], [place], [address] [place] [address], [facility] [employer] 11/19/2020 10:15:49 11/28/2020 text/html Patient presents today for follow-up with TVUS.She has no pain or bleeding symptoms. Desmond Sousa DO [address] [facility] [facility] [address], [place], [place], [address] [place] [address], [facility] [employer] 11/28/2020 19:01:36 01/23/2021 text/html Patient presents to the office today for f/u on ectopic . She c/o her moods being up and down. She states she is still having severe anxiety with depression. She also c/o pelvic pain. Kole Louis DO [address] [facility], [address], [place], [place], [address] [place] [address], [facility] [employer] 01/23/2021 16:23:07 02/14/2021 text/html Pre-Op ([facility])Reported bypatient.Procedure [...] precautions Blood Transfusion Acceptable:yes Healthcare Power of Joint Yarner:noNotes:Per sistant anxiety. Patient presents to the office today for pre-op visit. Kole Louis DO [address] [facility], [address], [place], [address], [facility] [employer] [facility] 02/21/2021 06:57:35 03/01/2021 text/html Post-Op ([facility])Reported bypatient.Procedure Date:02/21/2021 Surgical Procedure:Robotic assisted operative laparoscopy [...] removal. Kole Louis DO [address] [facility], [address], [place], [address], [facility] [employer] [facility] 03/01/2021 11:50:27 OBGyn Episode No OBEpisode recorded.
--- NOTE | 2025-02-27 13:00 | US_ITS ---
PROCEDURE: US OB FOLLOW UP CLINICAL INDICATION: spinal views COMPARISON: US US OB /MATERNAL DETAIL from 02/09/2025 FINDINGS: Transabdominal sonographic images of the pelvis were obtained. The following parameters are obtained: From her established due date she is 22weeks 4days Viable fetus in the breech presentation with a right lateral placenta grade 1. The edge of the placenta continues to have a circumvallate appearance. The cervix measures 3.2 cm heart rate: Rate not documented today but the fetus is active. Amniotic fluid: MVP 5.10 cm No obvious anomalies evident. profile seen, stomach, bladder, kidneys, three-vessel cord, four chamber heart appear normal. spine: The lower spine is seen in its entirety today and appears normal. IMPRESSION: 1. Viable fetus in the breech presentation with a right lateral placenta grade 1. There continues to be a circumvallate appearance to the most superior aspect of the placenta. 2. The fluid is within normal limits with an MVP 5.10 cm. 3. The lower spine is seen today in its entirety and appears normal. The rest of the limited anatomical scan appears normal. Dictated by: Shemar Rodriguez MD 02/27/2025 18:07 Shemar Rodriguez MD in OV 02/27/2025 18:07
== END 2025-02-27 23:59 | disposition home or self-care (01) ==
LOC: RAD 12:48
PROVIDERS: PCP Physician Assistant; Visit Provider Obstetrics & Gynecology
DX: O99.332 Smoking (tobacco) complicating pregnancy, second trimester (principal); F17.200 Nicotine dependence, unspecified, uncomplicated; O99.322 Drug use complicating pregnancy, second trimester; F11.20 Opioid dependence, uncomplicated; Z3A.22 22 weeks gestation of pregnancy
CPT/HCPCS: 76816

== ENCOUNTER 2025-03-14 13:50 | Outpatient (CLI) | payer OTHER, SELFPAY | END 2025-03-14 23:59 | disposition home or self-care (01) | LOC: LAB.DROPOF 03-15 10:08 | PROVIDERS: PCP Obstetrics & Gynecology; Visit Provider Obstetrics & Gynecology | DX: R31.9 Hematuria, unspecified (principal); R80.9 Proteinuria, unspecified | CPT/HCPCS: 87086 ==

== ENCOUNTER 2025-04-06 08:21 | Outpatient (CLI) | payer OTHER, SELFPAY ==
--- OUTSIDE RECORDS SUMMARY | 2023-04-30 11:43 | XMS_ITS | Continuity of Care Document ---
Author Organization [facility] Address [address] [place] [address] Phone Care Team Providers Care Director Asset Name Role Phone Stoney MSN, SMELTER OPERATOR, Karis Unavailable Unavai lable Allergies, Adverse Reactions, Alerts Substance Reaction Status Criticality NO KNOWN ALLERGIES Active No Inform ation Medications Medication Instructions Dosage Effective Dates (start - stop) Status Comments Lexapro 10 mg tablet take 1 tablet by or al route every day 10 MG - Active Advance Directives Directive Yes / No Effective Date File Name No Information Encounters Encounter Description Practice Location Reason(s) For Visit Diagnoses Date Provider [facility], [address] [place] [address], [place], [facility], tel:[phone] [facility] [place] No Information 3 Stoney Dyson. [address] [place], [place], [id number] , . tel:[phone] [facility], [address] [place] [address], [place], [facility], tel:[phone] [facility] [place] No Information 3 Isbell Mehnaz. . [facility], [address] [place] [address], [facility], tel:[phone] [facility] [place] follow up on labs (chief complaint) Body mass index [BMI] 19.9 or less, adultAnxietyOpioid dependence, uncomplicated Sep-0 3 Lua Karis. [address] [place], [place], [id number] , . tel:[phone] [facility], [address] [place] [address], [facility], [place] tel:[phone] [facility] [place] LANG (chief complaint) Cannabis dependence, uncomplicatedOpioid dependence, uncomplicated 3 Sukhi Garza. [address], [place], [id number] , [place]. tel:[phone] [facility], [address] [place] [address], [facility], [place] tel:[phone] [facility] [place] No Information 3 Sukhi Darby. . [facility], [address] [place] [address], [facility], tel:[phone] [facility] DU[facility] LANG (chief complaint) Opioid dependence, uncomplicatedCannabis dependence, uncomplicatedOpioid dependence with withdrawal 3 Sukhi Garza. [address], [place], [id number] , [place]. tel:[phone] [facility], [address] [place] [address], [facility], [place] tel:[phone] [facility] [place] Opioid dependence with withdrawalAnxiety 3 Valyue Joyce. [address], [place], [id number] , [place]. tel:[phone] [facility], [address] [place] [address], [facility], [place] tel:[phone] [facility] No Information 3 Vallee Joyce. [address], [place], [id number] , [place]. tel:[phone] [facility], [address] [place] [address], [facility], [place] tel:[phone] [facility] [place] MAT physical (chief complaint) Opioid dependence with withdrawalEncounter for screening for depressionEncounter for screening examination for other mental health and behavioral disordersEncounter for screening for diseases of the blood and blood-forming organs and certain disorders involving the immune mechanismAnxiety 3 Stoney Dyson. [address] [place], [place], [id number] , [place]. tel:[phone] [facility], [address] [place] [address], [address], tel:[phone] [facility], ROSWELLElizabeth WATTERS No Information 3 Isbell Kayla. [address], [place], [id number] , [place]. tel:[phone] Family History Family Member Type Diagnosis Age [...] tiluz marina(s) Hc- Covered Under Anders CI [id number] Hc- Covered Under Anders CI [id number] Social History Type Description Quantity Date Captured [...] due Goal Obtain Height, Weight, and B VA. Due on due Goal TSH. Due on [...] due Goal Obtain Height, Weight, and B VA. Due on due Goal Drug Abuse Screening [...] due Goal Obtain Height, Weight, and B VA. Due on due Goal Tobacco Use Cessation [...] due Goal Obtain Height, Weight, and B VA. Due on due Goal Influenza vaccine. Due [...] due Goal Obtain Height, Weight, and B VA. Due on due Goal CBC. Due on due Goal Obtain Height, Weight, and B VA. Due on due Goal Diabetes screening. Due [...] due Goal Obtain Height, Weight, and B VA. Due on due Goal Influenza vaccine. Due [...] due Goal Obtain Height, Weight, and B VA. Due on due Goal Influenza vaccine. Due [...] and/or Guardian has verified [facility] and has given verbal consent [...] chronic. 27 y/o S/W/F who resides in [place] with paramour of 3 years. She moved from [facility] 3 years ago to [place]. She experienced an etopic that resulted in [...] started employment recently and works at [employer] in housekeeping. Quit school in 9th grade due to not being interested. She did obtain her GED. She has been in detention 4-5 times and longest time served 1 [...] start our MAT program. Pt moved to [place] recently from [place] with her fiance, whom is from here. [...]
[2025-04-06 09:30] LABS: Glucose,Fasting 81 mg/dl (74-100)
[2025-04-06 10:19] LABS: Glucose 1 Hour 105 mg/dL (74-100)
--- NOTE | 2025-04-06 13:00 | US_ITS ---
PROCEDURE: US OB FOLLOW UP CLINICAL INDICATION: growth and placenta COMPARISON: US US OB /MATERNAL DETAIL from 02/09/2025 US US OB FOLLOW UP from 02/27/2025 FINDINGS: Transabdominal sonographic images of the pelvis were obtained. The following parameters are obtained: From her established due date she is 28weeks 0 days Viable fetus in the breech presentation with a posterior placenta grade 2. The tip of the placenta does not appear to be folded back upon itself today. The cervix measures 2.76 cm. heart rate: 140bpm bpm. Average ultrasound age 28 weeks 5 days Estimated weight 1214 grams, 2 lb 11 oz BPD: 29weeks 3days, 81 percentile HC: 28weeks 6days, 43 percentile AC: 28weeks 3days, 55 percentile FL: 28weeks 0 days, 33 percentile HC/AC: 1.1 FL/BPD: 0.72 FL/AC: 0.22 Growth percentile: 51 Amniotic fluid: MVP 5.57 cm No obvious anomalies evident. Stomach, bladder, kidneys, three-vessel cord, four chamber heart appear normal. IMPRESSION: 1. Viable fetus in the breech presentation with a posterior placenta grade 2. The tip of the placenta no longer appears circumvallate and folded back upon itself. 2. The fluid is within normal limits with an MVP 5.57 cm. 3. There has been good interval growth with the fetus currently measuring 51st percentile. 4. Limited anatomical scan appears normal. Dictated by: Shemar Rodriguez MD 04/06/2025 17:50 Shemar Rodriguez MD in OV 04/06/2025 17:50
== END 2025-04-06 23:59 | disposition home or self-care (01) ==
LOC: RAD 08:23
PROVIDERS: PCP Physician Assistant; Visit Provider Obstetrics & Gynecology
DX: O32.1XX0 Maternal care for breech presentation, not applicable or unspecified (principal); O43.113 Circumvallate placenta, third trimester; Z3A.28 28 weeks gestation of pregnancy
CPT/HCPCS: 36415; 76816; 82951

== ENCOUNTER 2025-04-12 14:45 | Outpatient (CLI) | payer OTHER, SELFPAY ==
--- OUTSIDE RECORDS SUMMARY | 2023-04-30 11:43 | XMS_ITS | Continuity of Care Document ---
Author Organization [facility] Address [address] [place] [address] Phone Care Team Providers Care Die Tester Name Role Phone Stoney MSN, EMERGENCY SERVICES DIRECTOR, Karis Unavailable Unavai lable Allergies, Adverse Reactions, [...] Location Reason(s) For Visit Diagnoses Date Provider [facility], [address] [place], [place], [facility], tel:[phone] 72 [facility] [place] No Information 3 Stoney Dyson. [address] [place], [place], [id number] , . tel:[phone] [facility], [address] [place], [place], [facility], tel:[phone] 72 [facility] [place] No Information 3 Isbell Mehnaz. . [facility], [address] [place] [address], [facility], tel:[phone] 72 [facility] [place] follow up on labs (chief complaint) Body mass index [BMI] 19.9 or less, adultAnxietyOpioid dependence, uncomplicated Sep-0 3 Lua Karis. [address] [place], [place], [id number] , . tel:[phone] [facility], [address] [place] [address], [facility], [place] tel:[phone] 72 [facility] HR[facility] DUONG LANG (chief complaint) Cannabis dependence, uncomplicatedOpioid dependence, uncomplicated 3 Sukhi Garza. [address] [place], [place], [address] , [place]. tel:[phone] [facility], [address] [place] [address], [facility], [place] tel:[phone] 72 [facility] [place] No Information 3 Sukhi Darby. . [facility], [address] [place] [address], [facility], tel:[phone] 72 [facility] HR[facility] [place] LANG (chief complaint) Opioid dependence, uncomplicatedCannabis dependence, uncomplicatedOpioid dependence with withdrawal 3 Sukhi Garza. [address] [place], [place], [address] , [place]. tel:[phone] [facility], [address] [place] [address], [facility], [place] tel:[phone] 72 [facility] [place] Opioid dependence with withdrawalAnxiety 3 Valyue Joyce. [address] [place], [place], [address] , [place]. tel:[phone] [facility], [address] [place] [address], [facility], [place] tel:[phone] 72 [facility] [place] No Information 3 Vallee Joyce. [address] [place], [place], [id number] , [place]. tel:[phone] [facility], [address] [place] [address], [facility], [place] tel:[phone] 72 [facility] [place] MAT physical (chief complaint) Opioid dependence with withdrawalEncounter for screening for depressionEncounter for screening examination for other mental health and behavioral disordersEncounter for screening for diseases of the blood and blood-forming organs and certain disorders involving the immune mechanismAnxiety 3 Stoney Dyson. [address] [place], [place], [address] , [place]. tel:[phone] [facility], [address] [place] [address], [address], tel:[phone] 72 [facility] [place] No Information 3 Isbell Kayla. [address] [place], [place], [address] , [place]. tel:[phone] Family History Family Member Type Diagnosis Age [...] Registry Payers Payer name Insurance type Covered libertarian ID Authoriza tiluz marina(s) Hc- Covered Under Anders CI [id number] Hc- Covered Under Anders CI [id number] Social History Type Description Quantity Date Captured [...] due Goal Obtain Height, Weight, and B TX. Due on due Goal TSH. Due on [...] due Goal Obtain Height, Weight, and B TX. Due on due Goal Diabetes screening. Due [...] due Goal Obtain Height, Weight, and B TX. Due on due Goal Tobacco Use Cessation [...] due Goal Obtain Height, Weight, and B TX. Due on due Goal Tobacco Use Cessation [...] due Goal Obtain Height, Weight, and B TX. Due on due Goal Influenza vaccine. Due [...] due Goal Obtain Height, Weight, and B TX. Due on due Goal CBC. Due on [...] due Goal Obtain Height, Weight, and B TX. Due on due Goal Diabetes screening. Due on due Goal Tobacco Use Screening. Due o n due Goal TSH. Due on due Goal Tobacco Use Cessation Counse ling. Due on due Goal CMP. Due on due Goal Depression screening. Due on due Goal HIV screen. Due on due Goal Obtain Height, Weight, and B TX. Due on due Goal Influenza vaccine. Due [...] and/or Guardian has verified being in the [facility] and has given verbal consent to be [...] chronic. 27 y/o S/W/F who resides in [facility] with paramour of 3 years. She moved from [facility] 3 years ago to [place]. 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 Quit school in 9th grade due to not being interested. She did obtain her GED. She has been in residential 4-5 times and longest time served 1 [...] start our MAT program. Pt moved to [place] recently from [place] with her fiance, whom is from here. [...]
== END 2025-04-12 23:59 | disposition home or self-care (01) ==
LOC: LAB.DROPOF 04-13 13:16
PROVIDERS: PCP Obstetrics & Gynecology; Visit Provider Obstetrics & Gynecology
DX: O43.112 Circumvallate placenta, second trimester (principal); O12.12 Gestational proteinuria, second trimester; R31.9 Hematuria, unspecified; Z3A.00 Weeks of gestation of pregnancy not specified
CPT/HCPCS: 87086

== ENCOUNTER 2025-04-26 15:30 | Outpatient (CLI) | payer OTHER, SELFPAY ==
--- OUTSIDE RECORDS SUMMARY | 2023-04-30 11:43 | XMS_ITS | Continuity of Care Document ---
Author Organization [facility] Address [address] [place] [address] Phone Care Team Providers Care Industrial Design Intern Name Role Phone Stoney MSN, MARINE PLUMBER, Karis Unavailable Unavai lable Allergies, Adverse Reactions, [...] Location Reason(s) For Visit Diagnoses Date Provider [facility] [[email or web address]], [address] [place], [place], [facility], tel:[phone] 72 [facility] [place] No Information 3 Stoney Dyson. [address] [place], [place], [address] , . tel:[phone] [facility] [[email or web address]], [address] [place], [place], [facility], tel:[phone] 72 [facility] [place] No Information 3 Isbell Mehnaz. . [facility] [[email or web address]], [address] [place] [address], [facility], tel:[phone] 72 [facility] HR[facility] [place] follow up on labs (chief complaint) Body mass index [BMI] 19.9 or less, adultAnxietyOpioid dependence, uncomplicated Sep-0 3 Lua Karis. [address] [place], [place], [address] , . tel:[phone] [facility] [[email or web address]], [address] [place] [address], [facility], [place] tel:[phone] 72 [facility] H HRSA DUONG LANG (chief complaint) Cannabis dependence, uncomplicatedOpioid dependence, uncomplicated 3 Sukhi Garza. [address] [place], [place], [address] , [place]. tel:[phone] [facility] [[email or web address]], [address] [place] [address], [facility], [place] tel:[phone] 72 [facility]-HRSA [place] No Information 3 Sukhi Darby. . [facility] [[email or web address]], [address] [place] [address], [facility], tel:[phone] 72 [facility] H HRSA DUONG LANG (chief complaint) Opioid dependence, uncomplicatedCannabis dependence, uncomplicatedOpioid dependence with withdrawal 3 Sukhi Garza. [address] [place], [place], [address] , [place]. tel:[phone] [facility] [[email or web address]], [address] [place] [address], [facility], [place] tel:[phone] 72 [facility] HRSA [place] Opioid dependence with withdrawalAnxiety 3 Valyue Joyce. [address] [place], [place], [address] , [place]. tel:[phone] [facility] [[email or web address]], [address] [place] [address], [facility], [place] tel:[phone] 72 [facility] HRSA [place] No Information 3 Vallee Joyce. [address] [place], [place], [address] , [place]. tel:[phone] [facility] [[email or web address]], [address] [place] [address], [facility], [place] tel:[phone] 72 [facility] HR[facility] [place] MAT physical (chief complaint) Opioid dependence with withdrawalEncounter for screening for depressionEncounter for screening examination for other mental health and behavioral disordersEncounter for screening for diseases of the blood and blood-forming organs and certain disorders involving the immune mechanismAnxiety 3 Stoney Dyson. [address] [place], [address] , [place]. tel:[phone] [facility] [[email or web address]], [address] [place] [address], [address], tel:[phone] 72 [facility] [place] No Information 3 Isbell Kayla. [address] [place], [place], [address] , [place]. tel:[phone] Family History Family Member Type Diagnosis Age [...] Registry Payers Payer name Insurance type Covered alliance party ID Authoriza tiluz marina(s) Hc- Covered Under Anders CI [id number] Hc- Covered Under Anders CI [id number] Social History Type Description Quantity Date Captured [...] due Goal Obtain Height, Weight, and B [place]. Due on due Goal TSH. Due on [...] due Goal Obtain Height, Weight, and B AZ. Due on due Goal Diabetes screening. Due [...] due Goal Obtain Height, Weight, and B AZ. Due on due Goal Tobacco Use Cessation [...] due Goal Obtain Height, Weight, and B AZ. Due on due Goal Tobacco Use Cessation [...] due Goal Obtain Height, Weight, and B AZ. Due on due Goal Influenza vaccine. Due [...] due Goal Obtain Height, Weight, and B AZ. Due on due Goal CBC. Due on [...] due Goal Obtain Height, Weight, and B AZ. Due on due Goal Diabetes screening. Due on due Goal Tobacco Use Screening. Due o n due Goal TSH. Due on due Goal Tobacco Use Cessation Counse ling. Due on due Goal CMP. Due on due Goal Depression screening. Due on due Goal HIV screen. Due on due Goal Obtain Height, Weight, and B AZ. Due on due Goal Influenza vaccine. Due [...] and/or Guardian has verified being in the [facility] and has given verbal consent [...] chronic. 27 y/o S/W/F who resides in [facility] with paramour of 3 years. She moved from [facility] 3 [place] ago to [place]. She experienced an etopic that resulted in [...] obtain her GED. She has been in skilled nursing 4-5 times and longest time served 1 [...] start our MAT program. Pt moved to [place] recently from [place] with her fiance, whom [...]
== END 2025-04-26 23:59 | disposition home or self-care (01) ==
LOC: LAB.DROPOF 04-27 10:58
PROVIDERS: PCP Obstetrics & Gynecology; Visit Provider Obstetrics & Gynecology
DX: R31.9 Hematuria, unspecified (principal)
CPT/HCPCS: 87086

== ENCOUNTER 2025-05-03 09:39 | Outpatient (CLI) | payer OTHER, SELFPAY ==
--- OUTSIDE RECORDS SUMMARY | 2023-04-30 11:43 | XMS_ITS | Continuity of Care Document ---
Author Organization [facility] Address [address] [place] [address] Phone Care Team Providers Care Sap Data Architect Name Role Phone Stoney MSN, SERVICE ADMINISTRATOR, Karis Unavailable Unavai lable Allergies, Adverse Reactions, [...] Reason(s) For Visit Diagnoses Date Provider [facility], [address] [place], [place], [facility], tel:[phone] 72 [facility] [place] No Information 3 Stoney Dyson. [address] [place], [place], [id number] , . tel:[phone] [facility], [address] [place], [place], [facility], tel:[phone] 72 [facility]-[place] [place] No Information 3 Isbell Mehnaz. . [facility], [address] [place] [address], [facility], tel:[phone] 72 [facility] [place] follow up on labs (chief complaint) Body mass index [BMI] 19.9 or less, adultAnxietyOpioid dependence, uncomplicated Sep-0 3 Lua Karis. [address] [place], [place], [id number] , . tel:[phone] [facility], [address] [place] [address], [facility], [place] tel:[phone] 72 [facility] HRSA DUONG LANG (chief complaint) Cannabis dependence, uncomplicatedOpioid dependence, uncomplicated 3 Sukhi Garza. [address] [place], [place], [address] , [place]. tel:[phone] [facility], [address] [place] [address], [facility], [place] tel:[phone] 72 [facility]-HR[facility] [place] No Information 3 Sukhi Darby. . [facility], [address] [place] [address], [facility], tel:[phone] 72 [facility] HRSA [place] LANG (chief complaint) Opioid dependence, uncomplicatedCannabis dependence, uncomplicatedOpioid dependence with withdrawal 3 Sukhi Garza. [address] [place], [place], [address] , [place]. tel:[phone] [facility], [address] [place] [address], [facility], [place] tel:[phone] 72 [facility] HRSA [place] Opioid dependence with withdrawalAnxiety 3 Valyue Joyce. [address] [place], [place], [address] , [place]. tel:[phone] [facility], [address] [place] [address], [facility], [place] tel:[phone] 72 [facility] HR[facility] [place] No Information 3 Vallee Joyce. [address] [place], [place], [address] , [place]. tel:[phone] [facility], [address] [place] [address], [facility], [place] tel:[phone] 72 [facility] [place] MAT physical (chief complaint) Opioid dependence with withdrawalEncounter for screening for depressionEncounter for screening examination for other mental health and behavioral disordersEncounter for screening for diseases of the blood and blood-forming organs and certain disorders involving the immune mechanismAnxiety 3 Stoney Dyson. [address] [place], [place], [address] , [place]. tel:[phone] [facility], [address] [place] [address], [address], tel:[phone] 72 [facility] [place] No Information 3 Isbell Kayla. [address] [place], [place], [address] , [place]. tel:[phone] Family History Family Member Type Diagnosis Age [...] tiluz marina(s) Hc- Covered Under Anders CI [id number] Hc- Covered Under Anders CI [id number] Social History Type Description Quantity Date Captured [...] due Goal Obtain Height, Weight, and B SC. Due on due Goal CMP. Due on due Goal Influenza vaccine. Due on due Goal Drug Abuse Screening Test (D AST-10). Due on due Goal Vitamin D. Due on due Goal Unhealthy drug use screening . Due on due Goal HIV screen. Due on due Goal Depression screening. Due on due Goal Tobacco Use Screening. Due o n due Goal CBC. Due on due Goal Generalized Anxi ety Disorder - 7 (MANUELA-7). Due on due Goal Obtain Height, Weight, and B SC. Due on due Goal Diabetes screening. Due on due Goal Tobacco Use Cessation Counse ling. Due on due Goal PAP. Due on [...] due Goal Obtain Height, Weight, and B SC. Due on due Goal TSH. Due on due Goal Tobacco Use Cessation Counse ling. Due on due Goal Unhealthy drug use screening . Due on due Goal HIV screen. Due on due Goal Influenza vaccine. Due on due Goal Generalized Anxi ety Disorder - 7 (MANUELA-7). Due on due Goal CBC. Due on due Goal Dietary education for weight gain completed Goal Drug Abuse Screening Test (D AST-10). [...] due Goal Obtain Height, Weight, and B SC. Due on due Goal Tobacco Use Cessation Counse ling. Due on due Goal CBC. Due on due Goal PAP. Due on due Goal CMP. Due on due Goal Depression screening. Due on due Goal TSH. Due on due Goal Vitamin B12. Due on 023 due Goal Influenza vaccine. Due on due Goal Unhealthy drug use screening . Due on due Goal Vitamin D. Due [...] due Goal Obtain Height, Weight, and B SC. Due on due Goal Influenza vaccine. Due [...] Vitamin B12. Due on 023 due Goal Follow up Plan f or [...] due Goal Obtain Height, Weight, and B SC. Due on due Goal CBC. Due on due Goal Obtain Height, Weight, and B SC. Due on due Goal Diabetes screening. Due on due Goal Tobacco Use Screening. Due o n due Goal TSH. Due on due Goal Tobacco Use Cessation Counse ling. Due on due Goal CMP. Due on due Goal Depression screening. Due on due Goal HIV screen. Due on due Goal Lipid panel. Due [...] due Goal Obtain Height, Weight, and B SC. Due on due Goal Influenza vaccine. Due [...] and/or Guardian has verified being in the [facility] and has given verbal consent to [...] chronic. 27 y/o S/W/F who resides in [facility] with paramour of 3 years. She moved from [facility] 3 years ago to [place]. 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 Quit school in 9th grade due to not being interested. She did obtain her GED. She has been in care home 4-5 times and longest time served 1 [...] start our MAT program. Pt moved to [place] recently from [place] with her fiance, whom is from [...]
[2025-05-03 09:49] VITALS: BMI 24.7
[2025-05-03 09:53] LABS: Microscopic, Urine URINE MICROSCOPIC (MICROSCOPIC)
[2025-05-03 10:01] VITALS: BP 118/68; PULSE 85; RESP 17; TEMP 36.8; O2SAT 95; BMI 24.7
[2025-05-03 10:11] LABS: Bilirubin,Urine Negative (Negative); Glucose,Urine (UA) Negative (Negative); Ketones,Urine Negative (Negative); Leukocyte Esterase,Urine Negative (Negative); PH,Urine 7.0 (5.0-8.5); Protein,Urine 3+ (Negative); Specific Gravity, Urine 1.025 (1.005-1.030); Urobilinogen,Urine 1.0 EU/dl (0.2)
[2025-05-03 10:21] LABS: Color,Urine Dark Yellow (Yellow)
[2025-05-03 10:57] LABS: Bacteria,Urine 1+ /lpf
== END 2025-05-03 12:12 | disposition home or self-care (01) ==
LOC: OBOUT 09:42 → OB 09:43
PROVIDERS: PCP Physician Assistant; Visit Provider Obstetrics & Gynecology
DX: O26.893 Other specified pregnancy related conditions, third trimester (principal); R10.9 Unspecified abdominal pain; Z3A.31 31 weeks gestation of pregnancy
CPT/HCPCS: 81001

== ENCOUNTER 2025-05-10 15:16 | Outpatient (CLI) | payer OTHER, SELFPAY ==
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
== END 2025-05-10 23:59 | disposition home or self-care (01) ==
LOC: LAB.DROPOF 05-11 10:52
PROVIDERS: PCP Obstetrics & Gynecology; Visit Provider Obstetrics & Gynecology
DX: O99.330 Smoking (tobacco) complicating pregnancy, unspecified trimester (principal); Z3A.00 Weeks of gestation of pregnancy not specified
CPT/HCPCS: 87086

== ENCOUNTER 2025-05-26 12:53 | Outpatient (CLI) | payer OTHER, SELFPAY | END 2025-05-26 23:59 | LOC: LAB.DROPOF 05-29 12:54 | PROVIDERS: Visit Provider Obstetrics & Gynecology | DX: Z34.92 Encounter for supervision of normal pregnancy, unspecified, second trimester (principal); Z3A.00 Weeks of gestation of pregnancy not specified | CPT/HCPCS: 86403 ==

== ENCOUNTER 2025-05-31 12:54 | Outpatient (CLI) | payer OTHER, SELFPAY ==
--- NOTE | 2025-05-31 13:00 | US_ITS ---
PROCEDURE: US OB BIOPHYSICAL PROFILE CLINICAL INDICATION: BPP and Growth COMPARISON: US US OB /MATERNAL DETAIL from 02/09/2025 US US OB FOLLOW UP from 02/27/2025 US US OB FOLLOW UP from 04/06/2025 FINDINGS: Transabdominal sonographic images of the uterus were obtained. From her established due date she is 35weeks 6days. The following parameters are obtained: Viable Fetus in the cephalic presentation with a posterior placenta grade 2. Average ultrasound age is 37weeks 0 days Estimated weight 2,887g, 6 lb 6 oz Cervix measures 2.96 cm Measurements: heart Rate = 133bpm BPD = 37weeks 4days, 92 percentile HC = 39weeks 0 days, 87 percentile AC = 36weeks 1day, 68 percentile FL = 35weeks 0 days, 21 percentile HC/AC is 1.05 FL/BPD is 0.74 FL/AC is 0.21 62 percentile Amniotic fluid index: 9.31cm, MVP 3.97 cm Qualitative AFV:2 Breathing movements: 2 Gross Body Movements: 2 Tone: 2 Biophysical profile score: 8 No obvious anomalies evident.Kidneys, profile, stomach, bladder, four-chamber heart, three-vessel cord appear normal. IMPRESSION: 1. Viable fetus in the cephalic presentation with a posterior placenta grade 2. 2. The fluid is within normal limits with an amniotic fluid index 9.31 cm, MVP 3.97 cm. 3. Biophysical profile is 8/8 with good breathing movement and movement seen. 4. There has been good interval growth with the fetus currently 62nd percentile. 5. Limited anatomical scan appears normal. Dictated by: Shemar Rodriguez MD 05/31/2025 14:58 Shemar Rodriguez MD in OV 05/31/2025 14:58
== END 2025-05-31 23:59 | disposition home or self-care (01) ==
LOC: RAD 12:54
PROVIDERS: PCP Obstetrics & Gynecology; Visit Provider Obstetrics & Gynecology
DX: O99.333 Smoking (tobacco) complicating pregnancy, third trimester (principal); Z3A.35 35 weeks gestation of pregnancy
CPT/HCPCS: 76816; 76819

== ENCOUNTER 2025-06-22 04:58 | Inpatient (IN) | payer OTHER, SELFPAY ==
[2025-06-22 05:11] VITALS: BP 124/83; PULSE 98; RESP 18; O2SAT 98; BMI 26.4
[2025-06-22 06:15] LABS: Hematocrit 32.0 % (37.0-47.0); Hemoglobin 10.8 g/dL (12.2-16.2); Immature Granulocytes % 0.6 %; Mean Corpuscular HGB Conc 33.8 g/dL (31.8-35.4); Mean Corpuscular Hemoglobin 28.9 pg (27.0-31.2); Mean Corpuscular Volume 85.6 fl (81-99); Nucleated Red Blood Cells % 0 %; Platelet Count 331 K/mm3 (142-424); Red Blood Count 3.74 M/mm3 (4.20-5.40); Red Cell Distribution Width-SD 40.8 fL; White Blood Count 12.8 K/mm3 (4.8-10.8)
[2025-06-22 06:34] LABS: Amphetamine/Metha Screen,Urine Negative ng/ml (<1000); Barbiturates Screen,Urine Negative ng/ml (<200); Benzodiazepines Screen,Urine Negative ng/ml (<200); Methadone Screen,Urine Negative ng/ml (<300); Opiate Screen,Urine Negative ng/ml (<300); Phencyclidine Screen,Urine Negative ng/ml (<25)
[2025-06-22] MEDS: DEXTROSE 5%-LACTATED RINGERS 1,000 ML 125 ML IV ×2 (06:41→14:46)
[2025-06-22 07:02] VITALS: BP 124/83; PULSE 98; RESP 18; O2SAT 98
[2025-06-22] MEDS: LACTATED RINGERS 1000ML 1,000 ML 500 ML IV (07:51)
[2025-06-22] MEDS: OXYTOCIN/RINGERS LACTATE 30 UNITS/500 ML BAG IV (07:56)
--- NOTE | 2025-06-22 08:57 | EXP.OB.APHP ---
OB - H&P: HPI Antepartum History of Present Illness Chief complaint: Elective Induction of labor History of present illness: Ms Maida Gordon is a 30 yo at 39w0d who presents to [facility] L&D for scheduled elective induction of labor. She had had good care. Baby is active. No contractions, leakage of fluid or vaginal bleeding. complicated by Suboxone maintenance, tobacco use and anxiety and depression. She is taking Sertraline 25 mg PO daily. GBS negative. History of Present Criteria for establishing EDC:: LMP confirmed by 1st trimester US care: good care Ultrasounds: normal mid trimester US Obstetrical complications: none Medical complications: none Labs Blood type: O (+) positive Rubella: nonimmune RPR/VDRL: nonreactive GBS status: negative HBsAG: negative [facility] Disclaimer: The information contained in this section may have been updated after the patient was seen, as this information can be updated by other users. Medical History (Updated 06/22/25 @ 13:18 by Yamilet Dennison DO) 39 weeks gestation of Encounter for elective induction of labor Hematuria without proteinuria Hematuria with proteinuria Circumvallate placenta during in second trimester, antepartum Rubella non-immune status, antepartum Tobacco use affecting , antepartum Suboxone maintenance treatment complicating , antepartum Hx of ectopic History of drug abuse Pityriasis rosea Surgical History Hx of unilateral salpingectomy No pertinent past surgical history Family History Family/Other No significant family history Social History (Updated 06/22/25 @ 12:48 by Teddy Villasenor CRNA) Smoking Status: Current every day smoker alcohol intake: never substance use type: other details: Currently taking Suboxone current occupational status: employed Travel in the last 8 weeks?: None Other Medical History Have you received the Flu Vaccine for this season: Yes Have you received the Pneumonia Vaccine: No Review of Systems Review of Systems Review of systems:: pertinent systems reviewed and negative unless documented below Meds Home Medications and Allergies Home Medications ?Medication ?Instructions ?Recorded ?Confirmed ?Type buprenorphine 8 mg-naloxone 2 mg 2 film buccal DAILY #60 ea 04/15/24 06/22/25 Rx sublingual film (Suboxone) vitamins with calcium 1 tab PO DAILY 11/22/24 06/22/25 History no.72-iron 27 mg-folic acid 1 mg tablet ( Vitamins Plus Low Iron) sertraline 25 mg tablet 25 mg PO DAILY #30 tabs 04/12/25 06/22/25 Rx New Prescriptions to Start Prescriptions: Allergies Allergy/AdvReac Type Severity Reaction Status Date / Time No Known Allergies Allergy Verified 06/19/25 13:36 OB - H&P: Exam Constitutional no acute distress and cooperative Routine HEENT Exam Head: Present normocephalic and atraumatic Eye: Absent conjunctivae pink ENT: Present mucous membranes moist Routine Neck Exam Present full ROM Routine Respiratory Exam Present CTA bilaterally and normal respiratory effort Routine Cardiovascular Exam Present RRR Routine Abdominal Exam Present soft (Gravid); Absent tenderness Routine Rectal Exam Patient deferred: visual exam Routine Exam External: Present normal urethra appearance; Absent erythema, swelling, tenderness, lesions or lacerations Routine Extremities Exam Present full ROM; Absent edema or calf tenderness Routine Neurological Exam Present alert, moving all extremities and normal speech Routine Psychiatric Exam Present normal affect and cooperative Detailed Labor and Delivery Exam Dilation (cm): 1 Effacement (%): 80 Cervix position: mid station: -2 Consistency: medium Membranes: artificially ruptured Amniotic fluid: clear Baseline heart rate: 130 monitor accelerations: Present monitor decelerations: None butcher scullion variability: Moderate (11-25) OB - Results Labs Labs: Short CBC 06/22/25 Range/Units 05:25 WBC 12.8 H (4.8-10.8) K/mm3 Hgb 10.8 L (12.2-16.2) g/dL Hct 32.0 L (37.0-47.0) % Plt Count 331 (142-424) K/mm3 OB - A/P Antepartum (1) Encounter for elective induction of labor: Status: Acute (2) 39 weeks gestation of : Status: Acute (3) Suboxone maintenance treatment complicating , antepartum: Status: Acute (4) Tobacco use affecting , antepartum: Status: Acute (5) Rubella non-immune status, antepartum: Status: Acute Additional Plan Additional Information:: Admit to L&D for induction of labor Induction with Pitocin and amniotomy GBS negative Close monitoring Anticipate vaginal delivery
--- NOTE | 2025-06-22 12:47 | EXP.ANES.CKL ---
[facility] Disclaimer: The information contained in this section may have been updated after the patient was seen, as this information can be updated by other users. Medical History Hematuria without proteinuria Hematuria with proteinuria Circumvallate placenta during in second trimester, antepartum Rubella non-immune status, antepartum Tobacco use affecting , antepartum Suboxone maintenance treatment complicating , antepartum Hx of ectopic History of drug abuse heroin and prescription opioid pills Pityriasis rosea Surgical History Hx of unilateral salpingectomy No pertinent past surgical history Family History Family/Other No significant family history Social History (Updated 06/22/25 @ 09:20 by Omid Cobb RN) Smoking Status: Current every day smoker alcohol intake: never substance use type: other details: Currently taking Suboxone current occupational status: employed Travel in the last 8 weeks?: None [facility] Anesthesia Checklist Patient Identification Patient Identification: Arm Band Structural Data Admitted From: Inpatient Planned Operative Procedure/s: Labor Epidural Consent for Planned Operative Procedure(s) Verified: Yes Verified Documents: Surgical Consent and History and Physical Additional verifications Anesthesia Reactions: No Neurological Assessment Level of Consciousness: Awake, Alert and Appropriate Anesthesia Plan Anesthesia Risk discussed: Yes Anesthesia Plan: Verified ASA Class: II Anesthesia Type: Epidural
[2025-06-22 13:38] LABS: RPR W/RFX Titers Nonreactive (Nonreactive)
--- NOTE | 2025-06-22 14:48 | HMH.PHAINT1 ---
Pharmacy Intervention Comments: MEDICATION RECONCILIATION COMPLETED ON PATIENT USING EXTERNAL FILL HISTORY FROM PHARMACY AND PANCHO REPORT. -KEMAL LEE, LALYD
--- NOTE | 2025-06-22 19:14 | EXP.DN ---
Delivery Note Delivery Date:: 06/22/25 Delivery Time:: 18:50 Anesthesia Type: Epidural Was labor medically induced?: No Induction method: per pitocin protocol Gestational age (weeks): 39 delivered prior to 39 weeks?: No Infant Gender: Male at 1 minute: 9 at 5 minutes: 9 Delivery Procedure:: Mom complete with epidural. Pushed for approximately 45 minutes. Head delivered spontaneously over intact perineum in ERICK position. Tight nuchal cord unable to be reduced. Nuchal cord was clamped and cut at perineum. Anterior shoulder delivered spontaneously. Posterior shoulder and remainder of body delivered spontaneously. Baby placed on maternal abdomen, mouth and nares bulb suctioned, warmed/dried and stimulated. Cord blood was obtained. Placenta delivered spontaneously and intact. Placenta will be sent to pathology for review. Second degree laceration and right labial laceration repaired with 3-0 Vicryl. Hemostasis noted. Mom and baby were skin to skin and doing well after delivery. Live male baby (baby's name is Rachid) APGARs 9 (1 min), 9 (5 min) EBL 250 mL Laceration:: vaginal Placental Delivery Description: Spontaneous
[2025-06-22 20:45] VITALS: BP 114/73; PULSE 84; RESP 16; TEMP 36.5
[2025-06-22 22:17] VITALS: BP 134/80; PULSE 84; RESP 17; O2SAT 99
[2025-06-22] MEDS: IBUPROFEN 400 MG TABLET 800 MG PO (23:02)
[2025-06-22] MEDS: WITCH HAZEL 40 PADS/BOX 1 EACH TP (23:03)
[2025-06-22] MEDS: BENZOCAINE-MENTHOL SPRAY 56GM CAN TP (23:03)
[2025-06-23] MEDS: ACETAMINOPHEN 500MG TAB 1000 MG PO ×3 (01:23→20:40)
[2025-06-23 05:21] VITALS: BP 123/70; PULSE 76; RESP 16; TEMP 36.7; O2SAT 100
[2025-06-23 06:14] LABS: Hematocrit 27.7 % (37.0-47.0); Immature Granulocytes % 0.5 %; Mean Corpuscular HGB Conc 32.5 g/dL (31.8-35.4); Mean Corpuscular Hemoglobin 28.0 pg (27.0-31.2); Mean Corpuscular Volume 86.3 fl (81-99); Nucleated Red Blood Cells % 0 %; Platelet Count 245 K/mm3 (142-424); Red Blood Count 3.21 M/mm3 (4.20-5.40); Red Cell Distribution Width-SD 40.8 fL; White Blood Count 14.5 K/mm3 (4.8-10.8)
[2025-06-23 06:24] LABS: Hemoglobin 9.0 g/dL (12.2-16.2)
--- NOTE | 2025-06-23 07:39 | EXP.ACUTE.PN ---
Subjective *Date: 06/23/25 *Time: 12:09 Interval history: PPD # 1 s/p Feeling well. Pain controlled. Formula feeding. Lochia is appropriate. Voiding without difficulty and passing flatus. Tolerating regular diet. Denies fever/chills, chest pain and shortness of breath. No headaches, vision changes, lightheadedness/dizziness. No lower extremity swelling. Ambulating well ad teresa. Medical Exam Vital signs and Labs for Last 24 Hours: Vital Signs Temp Pulse Resp BP Pulse Ox O2 Del Method 06/22/25 22:17 84 17 134/80 99 Room Air 06/22/25 20:45 97.7 F 84 16 114/73 Intake and Output 06/22/25 06/22/25 06/23/25 15:59 23:59 07:59 Intake Total 2061.70 / 2944.083 882.383 / 2944.083 Output Total 500 / 500 Balance 2061.70 / 2444.083 382.383 / 2444.083 Intake: Intake, Total IV Amount 2061.70 / 2944.083 882.383 / 2944.083 Dextrose 5%-Lactated Ringers 1, 1000 / 1545.833 545.833 / 1545.833 000 ml @ 125 mls/hr IV .Q8H [facility] Rx#:[id number] Lactated Ringers 1000ML 1,000 1000 / 1000 ml @ 500 mls/hr IV .Q2H [facility] Rx# :[id number] Oxytocin/Ringers Lactate 30 61.70 / 398.25 336.55 / 398.25 units In 500 ml @ 0.003 UNITS/ MIN 3 mls/hr IV .Q25H [facility] Rx#: [id number] Output: Output, Urine Amount (Catheter) 500 / 500 Peterson 500 / 500 Laboratory Results - last 24 hr 06/22/25 05:25: RPR w/Rflx to Titer Nonreactive, Blood Type O Positive, Antibody Screen Negative 06/23/25 05:21: WBC 14.5 H, RBC 3.21 L, Hgb 9.0 L D, Hct 27.7 L, MCV 86.3, MCH 28.0, MCHC 32.5, RDW 13.0, Plt Count 245 D, MPV 11.0 H, Neut % (Auto) 77.9, Lymph % (Auto) 14.8, [place] % (Auto) 5.8, Eos % (Auto) 0.8, Baso % (Auto) 0.2, Neut # (Auto) 11.3 H, Lymph # (Auto) 2.2, Kingman # (Auto) 0.8, Eos # (Auto) 0.1, Baso # (Auto) 0.0 I & O for Labs for Last 24 Hours: Intake & Output 06/20/25 06/21/25 06/22/25 06/23/25 23:59 23:59 23:59 23:59 Intake Total 2944.083 / 2944.083 Output Total 500 / 500 Balance 2444.083 / 2444.083 Weight 190 lb Head: Present atraumatic and normocephalic ENT: Present normal exam Neck: Present normal inspection and full ROM Respiratory: Present CTA bilaterally and normal respiratory effort Cardiac: Present Reg Rate and Rhythm GI: Present soft; Absent distention or tenderness Comments:: Uterine fundus firm and below umbilicus Rectal (female): Present deferred (female): Present deferred Extremities: Present full ROM; Absent tenderness, edema or calf tenderness Neuro: Present alert, awake and moves all extremities Assessment and Plan *Assessment and plan (1) Status post vaginal delivery: Status: Acute Category: Surgical (2) 39 weeks gestation of : Status: Acute Category: Medical Code(s): Z3A.39 - 39 weeks gestation of (3) Encounter for elective induction of labor: Status: Acute Category: Medical Code(s): Z34.90 - Encounter for supervision of normal , unspecified, unspecified trimester (4) Suboxone maintenance treatment complicating , antepartum: Status: Acute Category: Medical Code(s): O99.320 - Drug use complicating , unspecified trimester; F11.20 - Opioid dependence, uncomplicated (5) Tobacco use affecting , antepartum: Status: Acute Category: Medical Code(s): O99.330 - Smoking (tobacco) complicating , unspecified trimester (6) Rubella non-immune status, antepartum: Status: Acute Category: Medical Code(s): O09.899 - Supervision of other high risk pregnancies, unspecified trimester; Z28.39 - Other underimmunization status (7) Acute blood loss anemia: Status: Acute Category: Medical Code(s): D62 - Acute posthemorrhagic anemia Plan Continue routine care Encouraged increased ambulation AM Hgb 9.0 (Hgb 10.8 on admission) -- Venofer 200 mg IV x 1 dose Possible d/c home tomorrow and stay as guest. Baby will be monitored for several days secondary to Suboxone maintenance during
[2025-06-23] MEDS: IBUPROFEN 400 MG TABLET 800 MG PO ×2 (08:21→20:41)
[2025-06-23] MEDS: SERTRALINE 50MG TABLET 25 MG PO (08:21)
[2025-06-23] MEDS: BUPRENORPHINE/NALOXONE 8MG/2MG ODT 1 EACH SL (08:21)
--- NOTE | 2025-06-23 11:38 | SW/DCPLANNER ---
I received a referral for this patient regarding suboxone use during . male (Marcelo Vera) was born yesterday 06/22/25. Infant's father (Rachid Vera 03/26/98) was present at the time of my visit. Per patient this is her first child. Patient, infant's father, and paternal grandparents will reside at [address] [place] [address] in [place] [address]. Patient's contact number is [phone]. Patient stated that she will be established w/ [facility] and does have the following items at home: crib, car seat, clothing, diapers and will be bottle feeding. PED MD will be Dr Chery and patient will have transportation to all follow up appointments. Patient is currently established w/ [facility] in [place] and goes once a month. [facility] Per [facility] staff patient/father are appropriate w/ infant. No further needs at this time. I have informed OB staff to please contact me if any needs/questions come up prior to discharge.
[2025-06-23] MEDS: IRON SUCROSE COMPLEX 200 MG in 0.9 % SODIUM CHLORIDE 100 ML 220 MG IV (15:18)
[2025-06-23] MEDS: NICOTINE 21MG/24HR PATCH 21 MG TD (20:42)
[2025-06-23 20:48] VITALS: BP 142/82; PULSE 88; RESP 20; TEMP 36.6; O2SAT 100
[2025-06-23] MEDS: WITCH HAZEL 40 PADS/BOX 1 EACH TP (21:05)
[2025-06-23] MEDS: SENNA 8.6MG TABLET 8.6 MG PO (21:06)
[2025-06-23 22:52] VITALS: BP 115/55
[2025-06-24 05:27] VITALS: BP 118/73; PULSE 71; RESP 18; TEMP 36.8; O2SAT 98
[2025-06-24] MEDS: ACETAMINOPHEN 500MG TAB 1000 MG PO (06:52)
[2025-06-24] MEDS: WITCH HAZEL 40 PADS/BOX 1 EACH TP (07:00)
[2025-06-24 08:24] VITALS: BP 132/75; PULSE 86; RESP 16; TEMP 36.9; O2SAT 98
[2025-06-24] MEDS: BUPRENORPHINE/NALOXONE 8MG/2MG ODT 1 EACH SL (08:26)
[2025-06-24] MEDS: IBUPROFEN 400 MG TABLET 800 MG PO (08:26)
[2025-06-24] MEDS: SENNA 8.6MG TABLET 8.6 MG PO (08:28)
[2025-06-24] MEDS: SERTRALINE 50MG TABLET 25 MG PO (08:30)
--- NOTE | 2025-06-24 11:36 | P.DS_ITS ---
General Admission date:: 06/22/25 Discharge date: 06/24/25 HPI HPI HPI: PPD # 2 s/p Feeling well. Pain controlled. Formula feeding. Lochia is light. Voiding without difficulty and passing flatus. Tolerating regular diet. Denies fever/chills, chest pain and shortness of breath. No headaches, vision changes, lightheadedness/dizziness. No lower extremity swelling. Ambulating well ad teresa. Hospital Course Hospital Course Hospital Course: Ms Maida Gordon is a 30 yo at 39w0d who presents to [facility] L&D for scheduled elective induction of labor. She had had good care. Baby is active. No contractions, leakage of fluid or vaginal bleeding. complicated by Suboxone maintenance, tobacco use and anxiety and depression. She is taking Sertraline 25 mg PO daily. GBS negative. She underwent induction of labor with Pitocin and amniotomy. She had a spontaneous vaginal delivery on 06/22/25 at 1850. She delivered a live male baby, Rachid, weighing 7 lb 6 oz. APGARs 9 (1 min), 9 (5 min). EBL 250 mL. She did well . Pain controlled. Formula feeding. Light lochia. Voiding without difficulty and passing flatus. Tolerating regular diet. Denies fever/chills, chest pain and shortness of breath. No headaches, dizziness/lightheadedness or vision changes. Vital signs stable, afebrile. Heart regular rate and rhythm. Lungs clear to auscultation. Abdomen soft, nontender. No lower extremity swelling. Ambulating well ad teresa. She received Venofer 200 mg IV x 1 dose on PPD # 1 secondary to AM Hgb 9.0 (10.8 on admission). Normal hospital course. She was discharged to home on PPD # 2 with instructions to follow-up in the office in 2 weeks or sooner if needed. Exam Data for Last 24 hours Vital signs and Labs for Last 24 Hours: Temp Pulse Resp BP Pulse Ox O2 Del Method 98.5 F 86 16 132/75 98 Room Air 06/24/25 08:24 06/24/25 08:24 06/24/25 08:24 06/24/25 08:24 06/24/25 08:24 06/24/25 08:24 I & O for Last 24 hours: Intake & Output 06/21/25 06/22/25 06/23/25 06/24/25 23:59 23:59 23:59 23:59 Intake Total 2944.083 / 2944.083 110 / 110 Output Total 500 / 500 Balance 2444.083 / 2444.083 110 / 110 Weight 190 lb Constitutional Constitutional: no acute distress and cooperative *Routine HEENT Exam Head: Present normocephalic and atraumatic Eye: Absent conjunctivae pink ENT: Present mucous membranes moist; Absent dentition normal *Routine Neck Exam Neck: Present full ROM *Routine Respiratory Exam Respiratory: Present CTA bilaterally and normal respiratory effort *Routine Cardiovascular Exam Cardiovascular: Present RRR *Routine Abdominal Exam Abdominal: Present soft; Absent tenderness or distended Comments: Uterine fundus firm and below umbilicus *Routine Rectal Exam Patient deferred: visual exam *Routine Exam Patient deferred: external exam *Routine Extremities Exam Extremities: Present full ROM; Absent edema or calf tenderness *Routine Neurological Exam Neurological: Present alert, moving all extremities and normal speech Routine Psychiatric Exam Psychiatric: Present normal affect and cooperative DS: Diagnosis Discharge Diagnosis (1) Status post vaginal delivery: Status: Acute (2) 39 weeks gestation of : Status: Acute Code(s): Z3A.39 - 39 weeks gestation of (3) Encounter for elective induction of labor: Status: Acute Code(s): Z34.90 - Encounter for supervision of normal , unspecified, unspecified trimester (4) Suboxone maintenance treatment complicating , antepartum: Status: Acute Code(s): O99.320 - Drug use complicating , unspecified trimester; F11.20 - Opioid dependence, uncomplicated (5) Tobacco use affecting , antepartum: Status: Acute Code(s): O99.330 - Smoking (tobacco) complicating , unspecified trimester (6) Rubella non-immune status, antepartum: Status: Acute Code(s): O09.899 - Supervision of other high risk pregnancies, unspecified trimester; Z28.39 - Other underimmunization status (7) Acute blood loss anemia: Status: Acute Code(s): D62 - Acute posthemorrhagic anemia Meds Home Medications and Allergies Home Medications ?Medication ?Instructions ?Recorded ?Confirmed ?Type buprenorphine 8 mg-naloxone 2 mg 1 film buccal DAILY 1 08/22/24 06/22/25 History sublingual film (Suboxone) hydroxyzine pamoate 25 mg capsule 25 mg PO Q8HP PRN An xiety #30 caps 06/24/25 Rx ibuprofen 800 mg tablet 800 mg PO Q8H PRN pain #20 t abs 06/24/25 Rx sertraline 25 mg tablet 25 mg PO DAILY #30 tabs 06/10 01/01 Rx New Prescriptions to Start Prescriptions: hydroxyzine pamoate Yamilet Dennison ibuprofen Yamilet Dennison sertraline Yamilet Dennison Allergies Allergy/AdvReac Type Severity Reaction Status Date / Time No Known Allergies Allergy Verified 06/19/25 13:36 Discharge Plan Disposition Patient Disposition: Home, Self-Care Condition: Good Discharge Order Discharge Orders: Discharge Order (Routine); Ordered 06/24/25 Ordered By: Yamilet Dennison Follow up Plan Follow up with: Yamilet Dennison DO [Primary Care Provider, REELING MACHINE OPERATOR] - 07/10/25 3:15 pm Prescriptions/Medication Reconciliation: New hydroxyzine pamoate 25 mg Capsule 25 mg PO Q8HP PRN (Reason: Anxiety) Qty: 30 1RF ibuprofen 800 mg tablet 800 mg PO Q8H PRN (Reason: pain) Qty: 20 0RF Continued buprenorphine-naloxone [Suboxone] 8-2 mg film 1 film buccal DAILY Rx Instructions: place 1 film on inside of (each) cheek sertraline 25 mg tablet 25 mg PO DAILY Qty: 30 2RF Discontinued Vitamin Plus Low Iron 27 mg iron- 1 mg tablet 1 tab PO DAILY Problem Reconciliation Problems Reviewed?: Yes Patient Discharge Instructions ACTIVITY: Limited activity DIET: continue same diet and regular diet Additional Instructions: Discharge: 1. Take 800 mg Ibuprofen every 8 hours as needed for pain. You can also take 500-1000 mg of Tylenol in between doses, every 6-8 hours. 2. Nothing in the vagina for 6 weeks - no intercourse, douching or tampons. No tub baths/hot tubs or swimming pools 3. Reasons to return to L&D or call On-Call doctor - fever (greater than 100.4) - heavy vaginal bleeding (soaking through 1 pad in less than 2 hours) - vaginal discharge (malodorous and/or purulent) - severe headaches not resolved by medication or rest 4. depression/blues - Normal to feel anxious/overwhelmed for first 2 weeks - Talk to your doctor if: severe anxiety, trouble bonding with baby, withdrawing from other family members, thoughts of harming yourself or others Yamilet Dennison DO [facility] [phone] Print Language: Anguill[place] Providers Primary Care Provider: Yamilet Dennison Admit Provider: Yamilet Dennison Attending Provider: Yamilet Dennison
[2025-06-24] MEDS: MEASLES,MUMPS,RUBELLA VACCINE VIAL 0.5 ML SUBCUT (12:30)
== END 2025-06-24 12:47 | disposition home or self-care (01) | DRG 806 ==
PROVIDERS: Admitting Provider Obstetrics & Gynecology; PCP Obstetrics & Gynecology; Visit Provider Obstetrics & Gynecology
DX: O99.324 Drug use complicating childbirth (principal); D62 Acute posthemorrhagic anemia; Z37.0 Single live birth; F11.20 Opioid dependence, uncomplicated; Z3A.39 39 weeks gestation of pregnancy; O99.344 Other mental disorders complicating childbirth; F41.9 Anxiety disorder, unspecified; F32.A Depression, unspecified; O90.81 Anemia of the puerperium; O99.334 Smoking (tobacco) complicating childbirth; F17.200 Nicotine dependence, unspecified, uncomplicated; O69.1XX0 Labor and delivery complicated by cord around neck, with compression, not applicable or unspecified; O70.1 Second degree perineal laceration during delivery; Z23 Encounter for immunization; Z28.39 Other underimmunization status; Z79.899 Other long term (current) drug therapy
CPT/HCPCS: 36415; 51702; 59025; 80307; 85025; 86592; 86850; 90460; 90707; 94761; C1758; J0574; J1756; J7120; J7121